=== PATIENT | male | born 1950 | race Caucasian/White ===

== ENCOUNTER 2019-03-11 20:10 | Inpatient (IN) | payer MEDICARE ==
[~2019-03-11] VITALS: Ht 175.3 cm; Wt 95.9 kg
[2019-03-11] MEDS ORDERED: XANAX1 MG PO (20:16)
[2019-03-11] MEDS ORDERED: SEROQUEL25 MG PO (20:16)
[2019-03-11] MEDS ORDERED: BP MED (20:16)
[2019-03-11] MEDS ORDERED: DONEPEZIL HCL5 MG PO (20:17)
[2019-03-11] MEDS ORDERED: [UNRECOGNIZED DRUG - OTHER] (20:17)
[2019-03-11 21:03] LABS: BASOPHILS 0.3 % (0-2); EOSINOPHILS 2.6 % (0-7); HEMATOCRIT 36.4 % (42.0-54.0); HEMOGLOBIN 12.6 g/dL (13.5-17.5); IMMATURE GRANULOCYTES 0.2 % (0-5); LYMPHOCYTES 9.5 % (15-50); MCH 31.3 pg (26.0-34.0); MCHC 34.6 g/dL (31.0-37.0); MCV 90.5 fL (80.0-100.0); MONOCYTES 7.6 % (2-11); NEUTROPHILS 79.8 % (40-80); PLATELET COUNT 103 10x3/uL (130-400); RBC 4.02 10x6/uL (4.20-6.10); RDW 13.3 % (11.5-14.5); WBC 9.3 10x3/uL (4.8-10.8)
[2019-03-11 21:19] LABS: D-DIMER-QUANTITATIVE 1.21 ug/mLFEU (0.20-0.54)
[2019-03-11 21:22] LABS: ALBUMIN 3.6 g/dL (3.4-5.0); ALKALINE PHOSPHATASE 60 U/L (46-116); ALT (SGPT) 30 U/L (10-68); BILIRUBIN - TOTAL 0.38 mg/dL (0.2-1.3); CALC OSMOLALITY 278 mosm/kg (275-300); CALCIUM 8.6 mg/dL (8.5-10.1); CARBON DIOXIDE 20.8 mmol/L (21.0-32.0); CHLORIDE - SERUM 103 mmol/L (98-107); CREATININE - SERUM 1.6 mg/dL (0.6-1.3); GLUCOSE 115 mg/dL (74-106); POTASSIUM - SERUM 3.8 mmol/L (3.5-5.1); PROTEIN - SERUM 7.2 g/dL (6.4-8.2); SODIUM 138 mmol/L (136-145); UREA NITROGEN 17 mg/dL (7-18); eGFR NON AFRICAN AMERICAN 46 mL/min (90-120)
[2019-03-11 21:34] LABS: CKMB 3.1 U/L (0.0-3.6); MAGNESIUM - SERUM 1.9 mg/dL (1.8-2.4)
[2019-03-11 21:35] LABS: CREATINE KINASE 1109 UL (21-232); TROPONIN-I < 0.017 ng/mL (0.000-0.060)
[2019-03-11 23:21] LABS: INR 1.04 (0.85-1.17); PROTIME 13.1 SECONDS (11.6-15.0)
[2019-03-11 23:22] LABS: APTT 27.4 SECONDS (22.8-39.4)
[2019-03-11 23:56] VITALS: BP 115/70
[2019-03-12] MEDS ORDERED: NORVASC5 MG PO (00:32)
--- NOTE | 2019-03-12 01:10 | NUR ---
PT HAS ARRIVED TO FLOOR BY BED, VITALS STABLE. MEDICATIONS REVIEWED. PT STATES HAVING RIGHT SIDED PAIN UNDER RIBS. CURRENTLY SITTING UP IN BED WITH EYES OPEN, RR EVEN AND UNLABORED. NORMAL SALINE INFUSING ORDERED. PT HAS BEEN INFORMED HE IS NPO TONIGHT, PT DENIES FURTHER NEEDS AT THIS TIME. TELEMETRY ESTABLISHED. CALL LIGHT IN REACH. WILL CTM.
[2019-03-12 03:59] VITALS: BP 175/94; BMI 30.3
[2019-03-12 04:00] VITALS: BP 175/94
--- NOTE | 2019-03-12 04:10 | NUR ---
ADMISSION ASSESSMENT COMPLETED.
[2019-03-12 07:20] VITALS: BP 102/68
--- NOTE | 2019-03-12 10:29 | NUR ---
ASSISTED PT TO BR AND BACK TO BED, FAMILY AT BEDSIDE, DENIES ANY NEEDS AT THIS TIME. WILL CONT TO FOLLOW POC
[2019-03-12 10:41] VITALS: BP 102/59
[2019-03-12 10:46] VITALS: BP 102/67
--- NOTE | 2019-03-12 11:53 | NUR ---
PT RESTING IN BED WITH FAMILY AT BEDSIDE, DENIES ANY NEEDS AT THIS TIME, WILL CONT TO FOLLOW POC
[2019-03-12 13:32] VITALS: BMI 30.2
[2019-03-12 18:06] LABS: % SATURATION 11 % (15-55); ALBUMIN 3.2 g/dL (3.4-5.0); ANION GAP 12.5 mmol/L (8-16); BILIRUBIN - TOTAL 0.32 mg/dL (0.2-1.3); CALCIUM 8.3 mg/dL (8.5-10.1); CARBON DIOXIDE 24.6 mmol/L (21.0-32.0); IRON 26 ug/dl (35-150); POTASSIUM - SERUM 4.1 mmol/L (3.5-5.1); PROTEIN - SERUM 6.6 g/dL (6.4-8.2); TOTAL IRON BIND CAPACITY 226 ug/dl (260-445); UNSAT IRON BIND CAPACITY 200 ug/dl (150-375)
[2019-03-12 18:10] LABS: CREATININE - SERUM 1.1 mg/dL (0.6-1.3)
[2019-03-12 18:13] LABS: BASOPHILS 0.3 % (0-2); EOSINOPHILS 2.4 % (0-7); HEMATOCRIT 33.7 % (42.0-54.0); HEMOGLOBIN 11.4 g/dL (13.5-17.5); IMMATURE GRANULOCYTES 0.3 % (0-5); LYMPHOCYTES 8.5 % (15-50); MCH 31.3 pg (26.0-34.0); MCHC 33.8 g/dL (31.0-37.0); MEAN PLATELET VOLUME 9.6 fL (7.4-10.4); MONOCYTES 5.4 % (2-11); NEUTROPHILS 83.1 % (40-80); PLATELET COUNT 99 10x3/uL (130-400); RBC 3.64 10x6/uL (4.20-6.10); RDW 13.4 % (11.5-14.5); WBC 7.8 10x3/uL (4.8-10.8)
--- NOTE | 2019-03-12 18:23 | NUR ---
PT C/O OF ESPAÑA AND IS REQUESTING IBUPROFEN. PT STATES APAP DOES NOT HELP HIS ESPAÑA. ASKED PT TO LAY FLAT AND NURSE WILL CALL . ORDERED A ONE TIME DOSE OF IBUPROFEN 400MG. NURSE OBTAINED IBUPROFEN AND TOOK TO PT ROOM. PT HAD BEEN LAYING FLAT FOR ABOUT 10MINS BY THIS TIME. PT STATES HIS HEADACHE WENT AWAY. ADVISED PT HE IS MOST LIKELY HAVING A SPINAL ESPAÑA AND THAT LAYING FLAT AND DRINKING CAFFIENE WILL HELP THE ESPAÑA. PT VERBALIZES UNDERSTANDING. PT DID NOT WANT TO TAKE THE IBUPROFEN. NOTIFIED .
[2019-03-12 18:24] LABS: MCV 92.6 fL (80.0-100.0)
[2019-03-12 18:25] LABS: PLATELET ESTIMATE DECREASED
--- NOTE | 2019-03-12 19:38 | NUR ---
PT IN BED. DENIES NEEDS AT THIS TIME.
[2019-03-12 21:24] VITALS: BP 138/79
[2019-03-12 23:09] LABS: APPEARANCE CLEAR (CLEAR); BILIRUBIN NEGATIVE (NEGATIVE); COLOR YELLOW (YELLOW); GLUCOSE NEGATIVE (NEGATIVE); KETONE NEGATIVE (NEGATIVE); NITRITE NEGATIVE (NEGATIVE); PROTEIN NEGATIVE (NEGATIVE); UROBILINOGEN NORMAL (NORMAL)
[2019-03-13] VITALS: BP 111/53
[2019-03-13 04:00] VITALS: BP 135/80
[2019-03-13 05:58] LABS: BASOPHILS 0.3 % (0-2); EOSINOPHILS 3.2 % (0-7); HEMOGLOBIN 10.6 g/dL (13.5-17.5); IMMATURE GRANULOCYTES 0.3 % (0-5); LYMPHOCYTES 10.3 % (15-50); MCH 30.7 pg (26.0-34.0); MCHC 33.1 g/dL (31.0-37.0); MCV 92.8 fL (80.0-100.0); MEAN PLATELET VOLUME 9.1 fL (7.4-10.4); MONOCYTES 9.4 % (2-11); NEUTROPHILS 76.5 % (40-80); PLATELET COUNT 84 10x3/uL (130-400); RBC 3.45 10x6/uL (4.20-6.10); RDW 13.5 % (11.5-14.5); WBC 7.3 10x3/uL (4.8-10.8)
[2019-03-13 06:13] LABS: CALC OSMOLALITY 281 mosm/kg (275-300); CALCIUM 8.1 mg/dL (8.5-10.1); CARBON DIOXIDE 24.7 mmol/L (21.0-32.0); CHLORIDE - SERUM 108 mmol/L (98-107); POTASSIUM - SERUM 3.9 mmol/L (3.5-5.1); SODIUM 140 mmol/L (136-145); UREA NITROGEN 18 mg/dL (7-18); eGFR NON AFRICAN AMERICAN 79 mL/min (90-120)
[2019-03-13 06:15] LABS: GLUCOSE 113 mg/dL (74-106)
[2019-03-13 07:56] VITALS: BP 161/87
--- NOTE | 2019-03-13 08:00 | NUR ---
PT RESTING COMFORTABLE IN BED, SHIFT ASSESSMENT PERFORMED. DENIES ANY NEEDS AT THIS TIME. WILL CONT TO FOLLOW POC
--- NOTE | 2019-03-13 09:13 | MORECARE ---
CASE MANAGEMENT DISCHARGE SUMMARY PATIENT: KATHERINE COLES UNIT: [id number] ADM DATE: 03/11/19 AGE: 68 : 51 SEX: M ROOM/BED: D.2111 AUTHOR: VENUDOC PHYSICIAN: REFERRING PHYSICIAN: LUCHO SHELTON MD DATE OF SERVICE: 03/13/19 Discharge Plan Patient Name: KATHERINE COLES Facility: [facility]:[place] : 1950 Planned Disposition: Home Anticipated Discharge Date: 03/14/19 Discharge Date: Expected LOS: 3 Initial Reviewer: [id number] Initial Review Date: 03/13/2019 Generated: 03/13/19 10:13 am Comments DCP- Discharge Planning Updated by [id number]: Hero Olmstead on 03/12/19 3:[address] Patient Name: KATHERINE COLES Admission Status: ER Accout number: [id number] Admission Date: 03-11-2019 : 1950 Admission Diagnosis: Attending: LUCHO SHELTON Current LOS: 1 Anticipated DC Date: Planned Disposition: Primary Insurance: MEDICARE A & B Discharge Planning Comments: CM ATTEMPTED TO MEET WITH PT FOR INITIAL ASSESSMENT OF DISCHARGE NEEDS. PT WAS NOT IN ROOM AT APPROXIMATELY 1600 HOURS. CM TO ATTEMPT ASSESSMENT OF PT AT A LATER TIME. Electrical Machine Builder: Hero Olmstead DCPIA - Discharge Planning Initial Assessment Updated by [id number]: Hero Olmstead on 03/13/19 9:12 am * Is the patient Alert and Oriented? Yes * How many steps to enter\exit or inside your home? * PCP DR. MORALEZ * Pharmacy [facility] ON [facility] * Preadmission Environment Home Alone * ADLs Independent * Equipment None * Other Equipment NO MEDICAL EQUIPMENT PROVIDER PREFERENCE * List name and contact numbers for known caregivers / representatives who currently or will assist patient after discharge: KAROL PACHECO DTR, * Verbal permission to speak to the caregivers and representatives has been obtained from the patient. Yes * Community resources currently utilized None * Please name any agencies selected above. NONE * Additional services required to return to the preadmission environment? No * Can the patient safely return to the preadmission environment? Yes * Has this patient been hospitalized within the prior 30 days at any hospital? No Coverage Notice Reviewer: [id number] - Hero Bellmore Notice Issued Date-Time: 03/13/2019 9:00 Notice Type: IM Discharge Notice Notice Delivered To: Patient Relationship to Patient: Unclaimed Property Manager Name: Delivery Method: HAND - Hand Delivered Miguelina Days: Prior Verbal Notification: Recipient Understood Notice: Yes Recipient Signature: Yes Med Rec Note Co-signed by Attending: Coverage Notice Comment: Patient Name: KATHERINE COLES Page 27556 at 0913 All edits/amendments must be made on the electronic document DICTATION DATE: 03/13/19912 CLEANER WINDOW: ANGIE 03/13/19912 RPT#: [id number] DC DATE: STATUS: ADM IN [facility] [address] [place] [address] END OF REPORT
--- NOTE | 2019-03-13 09:20 | MORECARE ---
CASE MANAGEMENT DISCHARGE SUMMARY PATIENT: KATHERINE COLES UNIT: [id number] ADM DATE: 03/11/19 AGE: 68 : 51 SEX: M ROOM/BED: D.2111 AUTHOR: VENU,DOC PHYSICIAN: REFERRING PHYSICIAN: LUCHO SHELTON MD DATE OF SERVICE: 03/13/19 Discharge Plan Patient Name: KATHERINE COLES Facility: [facility]:[place] : 1950 Planned Disposition: Home Anticipated Discharge Date: 03/14/19 Discharge Date: Expected LOS: 3 Initial Reviewer: [email or web address] Initial Review Date: 03/13/2019 Generated: 03/13/19 10:20 am Comments DCP- Discharge Planning Updated by [email or web address]: Hero Olmstead on 03/13/19 8:[address] Patient Name: KATHERINE COLES Admission Status: ER Accout number: [id number] Admission Date: 03-11-2019 : 1950 Admission Diagnosis: Attending: LUCHO SHELTON Current LOS: 2 Anticipated DC Date: 03-14-2019 Planned Disposition: Home Primary Insurance: MEDICARE A & B Discharge Planning Comments: CM MET WITH PT AND FAMILY IN ROOM TO DISCUSS DISCHARGE PLANNING AND NEEDS. KATHERINE COLES provided verbal consent to discuss current and ongoing needs with/in the presence of: SON IN LAW. PT REPORTS LIVING AT HOME INDEPENDENTLY AND ALONE. 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 PT HAS NO MEDICAL EQUIPMENT AND NO OUTSIDE SERVICES ASSISTING IN THE HOME. CM DISCUSSED AVAILABILITY OF HOME HEALTH, REHAB SERVICES AND MEDICAL EQUIPMENT. PT DENIES DISCHARGE NEEDS, REPORTS HIS FAMILY WILL PICK HIM UP FOR DISCHARGE HOME. IMPORTANT MESSAGE FROM MEDICARE PROVIDED AND EXPLAINED. PT PLANS TO DISCHARGE HOME ALONE, NO ANTICIPATED DISCHARGE NEEDS, FAMILY TO TRANSPORT HOME AT DISCHARGE. CM TO FOLLOW AND ASSIST IF NEEDED. Counter Control Operator: Hero Olmstead DCP- Discharge Planning Updated by [id number]: Hero Olmstead on 03/12/19 3:[address] Patient Name: KATHERINE COLES Admission Status: ER Accout number: [id number] Admission Date: 03-11-2019 : 1950 Admission Diagnosis: Attending: LUCHO SHELTON Current LOS: 1 Anticipated DC Date: Planned Disposition: Primary Insurance: MEDICARE A & B Discharge Planning Comments: CM ATTEMPTED TO MEET WITH PT FOR INITIAL ASSESSMENT OF DISCHARGE NEEDS. PT WAS NOT IN ROOM AT APPROXIMATELY 1600 HOURS. CM TO ATTEMPT ASSESSMENT OF PT AT A LATER TIME. Counter Control Operator: Hero Olmstead DCPIA - Discharge Planning Initial Assessment Updated by [id number]: Hero Olmstead on 03/13/19 9:12 am * Is the patient Alert and Oriented? Yes * How many steps to enter\exit or inside your home? * PCP DR. MORALEZ * Pharmacy [facility] ON [facility] * Preadmission Environment Home Alone * ADLs Independent * Equipment None * Other Equipment NO MEDICAL EQUIPMENT PROVIDER PREFERENCE * List name and contact numbers for known caregivers / representatives who currently or will assist patient after discharge: KAROL PACHECO DTR, * Verbal permission to speak to the caregivers and representatives has been obtained from the patient. Yes * Community resources currently utilized None * Please name any agencies selected above. NONE * Additional services required to return to the preadmission environment? No * Can the patient safely return to the preadmission environment? Yes * Has this patient been hospitalized within the prior 30 days at any hospital? No Coverage Notice Reviewer: [id number] - Hero Olmstead Notice Issued Date-Time: 03/13/2019 9:00 Notice Type: IM Discharge Notice Notice Delivered To: Patient Relationship to Patient: Chip Silo Tender Name: Delivery Method: HAND - Hand Delivered Miguelina Days: Prior Verbal Notification: Recipient Understood Notice: Yes Recipient Signature: Yes Med Rec Note Co-signed by Attending: Coverage Notice Comment: Last DP export: 03/13/19 8:13 am Patient Name: KATHERINE COLES Page [phone] at 0920 All edits/amendments must be made on the electronic document DICTATION DATE: 03/13/19919 LAUNDRY HOUSEKEEPER: ANGIE 03/13/19919 RPT#: [id number] DC DATE: STATUS: ADM IN [facility] [address] [place] [address] END OF REPORT
--- NOTE | 2019-03-13 11:06 | NUR ---
STUDENT NURSE NOTIFIED NURSE THAT PT EPIDURAL DRESSING WAS OFF AND THE EPIDURAL WAS EXPOSED. UPON ASSESSMENT, DRESSING ROLLED UP PT BACK AND HIS EPIDURAL CATHETER WAS EXPOSED. PAGED ANESTHESIA. ANESTHESIA CAME TO PT ROOM AND REDRESSED EPIDURAL. WHILE ANESTHESIA WAS IN ROOM, THEY CHANGED OUT FENTANYL. FENTANYL REMOVED WAS 15ML AND NEW BAG BALANCE IS 257.4
[2019-03-13 12:53] VITALS: BP 160/79
--- NOTE | 2019-03-13 13:55 | NUR ---
PT C/O OF PAIN. SPOKE TO AND NEW ORDER RECIEVED TO INCREASE HMP FROM 1MG Q4H PRN TO 2MG Q4H PRN AND GO AHEAD AND GIVE 1MG NOW.
[2019-03-13 15:08] VITALS: BP 144/82
--- NOTE | 2019-03-13 15:13 | NUR ---
PIV TO PT RIGHT AC INFILTRATED. REMOVED PIV WITH CATHETER TIP INTACT. 20G PIV INSERTED TO PT RIGHT HAND X1 ATTEMPT. PT TOLERATED WELL.
--- NOTE | 2019-03-13 16:25 | NUR ---
PT GIVEN HMP 2MG AT 1515. AT 1620 PT C/O PAIN. NEW ORDER RECIEVED FROM TO INCREASE HMP TO 3MG Q4HR PRN.
--- NOTE | 2019-03-13 19:46 | NUR ---
ORDER CLARIFICATION: PTS EMAR STILL SHOWS EPIDURAL FOR PAIN CONTROL ALONG WITH DILAUDID 3 MG Q4 HOURS PRN, HOW EVER EPIDURAL IS TURNED OFF. SPOKE WITH DR SHELTON, ORDERS TO GIVE THE DILAUDID 3 MG EVERY 4 HOURS NEEDED AND IF THAT DOESNT CONTROL THE PAIN THEN TO CALL BACK AND THE PAIN MEDS MAY BE INCREASED.
[2019-03-13 20:00] VITALS: BP 148/91
[2019-03-14 04:00] VITALS: BP 145/75
--- NOTE | 2019-03-14 06:37 | NUR ---
PT IN BED IN LOW FOWLERS POSITION. ALERT AND ORIENTED X4. RESPIRATIONS EVEN AND UNLABORED. VITAL SIGNS STABLE AND AFEBRILE. NO VISUAL CUES OF DISTRESS NOTED. DENIES ANY OTHER NEEDS AT THIS TIME. BED LOW, SIDE RAILS UP X2. CALL LIGHT IN REACH. WILL CONTINUE TO MONITOR.
[2019-03-14 06:39] LABS: BASOPHILS 0.1 % (0-2); EOSINOPHILS 0.8 % (0-7); HEMATOCRIT 32.6 % (42.0-54.0); IMMATURE GRANULOCYTES 0.3 % (0-5); LYMPHOCYTES 8.1 % (15-50); MCH 30.9 pg (26.0-34.0); MCHC 33.7 g/dL (31.0-37.0); MCV 91.6 fL (80.0-100.0); MONOCYTES 7.5 % (2-11); NEUTROPHILS 83.2 % (40-80); PLATELET COUNT 97 10x3/uL (130-400); RBC 3.56 10x6/uL (4.20-6.10); RDW 13.6 % (11.5-14.5)
[2019-03-14 06:43] LABS: WBC 9.8 10x3/uL (4.8-10.8)
[2019-03-14 06:52] LABS: CALC OSMOLALITY 276 mosm/kg (275-300); CALCIUM 8.5 mg/dL (8.5-10.1); CARBON DIOXIDE 27.1 mmol/L (21.0-32.0); CHLORIDE - SERUM 104 mmol/L (98-107); CREATININE - SERUM 0.9 mg/dL (0.6-1.3); GLUCOSE 130 mg/dL (74-106); LDH 246 U/L (85-227); POTASSIUM - SERUM 4.2 mmol/L (3.5-5.1); SODIUM 137 mmol/L (136-145); UREA NITROGEN 14 mg/dL (7-18); eGFR NON AFRICAN AMERICAN 89 mL/min (90-120)
[2019-03-14 07:03] LABS: INR 1.18 (0.85-1.17); PROTIME 14.5 SECONDS (11.6-15.0)
--- NOTE | 2019-03-14 07:30 | NUR ---
RECEIVED PT IN BED EYES CLOSED RESP UNLABORED SKIN W/D COLOR WNL NAD NOTED WILL CONTINUE TO MONITOR
[2019-03-14 09:23] VITALS: BP 119/72
[2019-03-14 13:35] VITALS: BP 141/90
--- NOTE | 2019-03-14 14:37 | NUR ---
Nutrition follow-up: Diet: Low sodium PO intake 100% of meals Labs reviewed Wt: 213# PO intake good at this time RDN following.
[2019-03-14 18:00] VITALS: BP 146/88
[2019-03-14 20:00] VITALS: BP 152/91
--- NOTE | 2019-03-14 20:00 | NUR ---
PATIENT SITTING UP IN BED. NO COMPLAINTS AT THIS TIME. NO DISTRESS NOTED.
--- NOTE | 2019-03-15 00:30 | NUR ---
PATIENT LAYING IN BED. EYES CLOSED, CHEST RISING AND FALLING. NO DISTRESS NOTED.
[2019-03-15 04:00] VITALS: BP 132/77
--- NOTE | 2019-03-15 04:13 | NUR ---
I have reviewed this patient and I concur with the Shift Assessment completed by the Licensed Practical Nurse today this shift.
[2019-03-15 05:05] LABS: BASOPHILS 0.1 % (0-2); EOSINOPHILS 0.1 % (0-7); HEMATOCRIT 31.5 % (42.0-54.0); HEMOGLOBIN 10.7 g/dL (13.5-17.5); IMMATURE GRANULOCYTES 0.3 % (0-5); LYMPHOCYTES 7.6 % (15-50); MCV 91.3 fL (80.0-100.0); MONOCYTES 2.1 % (2-11); NEUTROPHILS 89.8 % (40-80); PLATELET COUNT 102 10x3/uL (130-400); RBC 3.45 10x6/uL (4.20-6.10); RDW 13.4 % (11.5-14.5)
[2019-03-15 05:18] LABS: CALC OSMOLALITY 273 mosm/kg (275-300); CALCIUM 8.9 mg/dL (8.5-10.1); CARBON DIOXIDE 27.3 mmol/L (21.0-32.0); CHLORIDE - SERUM 102 mmol/L (98-107); GLUCOSE 178 mg/dL (74-106); POTASSIUM - SERUM 5.2 mmol/L (3.5-5.1); SODIUM 135 mmol/L (136-145); UREA NITROGEN 13 mg/dL (7-18); eGFR NON AFRICAN AMERICAN 79 mL/min (90-120)
[2019-03-15 06:13] LABS: FOLATE (FOLIC ACID) - SERUM >20.0 ng/mL (>3.0)
--- NOTE | 2019-03-15 07:44 | NUR ---
PT AWAKE AND ORIENTED AT THIS TIME. RECIEVING BREATHING TREATMENT. NO COMPLAINTS OR CONCERNS VOICED AT THIS TIME. CL IN REACH, SRX2.
--- NOTE | 2019-03-15 09:09 | NUR ---
PT REQUESTED A SHOWER, AID TO ASSIST.
[2019-03-15 09:18] VITALS: BP 154/90
--- NOTE | 2019-03-15 10:56 | NUR ---
PT STATES THAT HE BUMPED HIS ELBOW ON THE EDGE OF THE SINK. CAUSED A SKIN TEAR, SIZE OF A DIME. PT RESFUSES A BANDAID. CL IN REACH. SRX2.
[2019-03-15 13:12] VITALS: BP 163/87
[2019-03-15 17:11] VITALS: BP 151/95
--- NOTE | 2019-03-15 18:30 | NUR ---
I/V RESITED TO RIGHT AC
--- NOTE | 2019-03-15 18:39 | NUR ---
PT IV RESITED. NO OTHER COMPLAINTS OR CONCERNS AT THIS TIME. CL IN REACH, SRX2.
--- NOTE | 2019-03-15 19:00 | NUR ---
PATIENT SITTING UP ON SIDE OF BED WITH FAMILY IN ROOM. PATIENT HAS NO COMPLAINTS AT THIS TIME. NO DISTRESS NOTED.
[2019-03-15 20:22] VITALS: BP 148/85
[2019-03-16] VITALS (7 sets, daily range): BP systolic 125–170; BP diastolic 73–100
--- NOTE | 2019-03-16 02:56 | NUR ---
I have reviewed this patient and I concur with the Shift Assessment completed by the Licensed Practical Nurse today this shift.
--- NOTE | 2019-03-16 04:05 | NUR ---
PATIENT LAYING IN BED. STATES HE JUST WENT TO THE BATHROOM. HAS NOT HAD A BOWEL MOVEMENT YET. PATIENT STATES THE LAXATIVES JUST GAVE HIM "GAS" SO FAR. PATIENT HAS NO COMPLAINTS AT THIS TIME. NO DISTRESS NOTED.
[2019-03-16 05:00] LABS: BASOPHILS 0.1 % (0-2); EOSINOPHILS 0 % (0-7); HEMATOCRIT 29.6 % (42.0-54.0); HEMOGLOBIN 9.9 g/dL (13.5-17.5); IMMATURE GRANULOCYTES 0.3 % (0-5); LYMPHOCYTES 9.1 % (15-50); MCH 30.7 pg (26.0-34.0); MCHC 33.4 g/dL (31.0-37.0); MCV 91.6 fL (80.0-100.0); MEAN PLATELET VOLUME 8.7 fL (7.4-10.4); MONOCYTES 5.2 % (2-11); NEUTROPHILS 85.3 % (40-80); RBC 3.23 10x6/uL (4.20-6.10); RDW 13.6 % (11.5-14.5); WBC 7.3 10x3/uL (4.8-10.8)
[2019-03-16 05:03] LABS: PLATELET COUNT 127 10x3/uL (130-400)
[2019-03-16 05:21] LABS: CALC OSMOLALITY 283 mosm/kg (275-300); CALCIUM 8.6 mg/dL (8.5-10.1); CARBON DIOXIDE 30.8 mmol/L (21.0-32.0); CHLORIDE - SERUM 103 mmol/L (98-107); CREATININE - SERUM 0.9 mg/dL (0.6-1.3); GLUCOSE 174 mg/dL (74-106); POTASSIUM - SERUM 4.6 mmol/L (3.5-5.1); SODIUM 139 mmol/L (136-145); eGFR NON AFRICAN AMERICAN 89 mL/min (90-120)
[2019-03-16 05:22] LABS: UREA NITROGEN 19 mg/dL (7-18)
--- NOTE | 2019-03-16 07:37 | NUR ---
PT ASLEEP, BREATHS EVEN AND REGUALR. NO OBVIOUS SIGNS OF DISTRESS NOTED AT THIS TIME. DID NOT WAKE WHEN I ENTERED, DID NOT FURTHER DISTURB AT THIS TIME. CL INREACH, SRX2.
--- NOTE | 2019-03-16 13:30 | NUR ---
I have reviewed this patient and I concur with the Shift Assessment completed by the Licensed Practical Nurse today this shift.
--- NOTE | 2019-03-17 | NUR ---
PT COMPLAINS OF COUGH AND PAIN. PRN COUGH MEDICATION REQUESTED AND GIVEN. WILL CONTINUE TO MONITOR.
--- NOTE | 2019-03-17 00:48 | NUR ---
PT STATES THE COUGH HAS GOTTEN BETTER THAT ITS NOT FREQUENT. PT STATES THE PAIN IS FROM THE COUGH. WILL CONTINUE TO MONITOR.
--- NOTE | 2019-03-17 01:44 | NUR ---
PT AWAKE BUT RESTING WITH OCCASIONAL COUGHING. PT DENIES ANY PAIN OR NEEDS AT THIS TIME. BED LOW, CALL LIGHT WITHIN REACH, WILL CONTINUE TO MONITOR.
--- NOTE | 2019-03-17 02:38 | NUR ---
PT STATES THAT PRN COUGH MEDICATION HAS MADE COUGH WORSE. PT REQUESTED PRN PAIN MEDICATION. MEDICATION GIVEN. WILL CONTINUE TO MONITOR AND ACCESS.
--- NOTE | 2019-03-17 03:11 | NUR ---
I have reviewed this patient and I concur with the Shift Assessment completed by the Licensed Practical Nurse today this shift.
--- NOTE | 2019-03-17 03:18 | NUR ---
PT RESTING WITH EYES CLOSED RR EVEN AND UNLABORED. BED LOW CALL LIGHT WITHIN REACH. WILL CONTINUE TO MONITOR.
[2019-03-17 04:54] LABS: BASOPHILS 0.4 % (0-2); EOSINOPHILS 0.6 % (0-7); HEMATOCRIT 30.5 % (42.0-54.0); HEMOGLOBIN 10.1 g/dL (13.5-17.5); IMMATURE GRANULOCYTES 0.6 % (0-5); LYMPHOCYTES 20.4 % (15-50); MCH 30.8 pg (26.0-34.0); MCHC 33.1 g/dL (31.0-37.0); MEAN PLATELET VOLUME 8.3 fL (7.4-10.4); MONOCYTES 11.4 % (2-11); NEUTROPHILS 66.6 % (40-80); PLATELET COUNT 140 10x3/uL (130-400); RBC 3.28 10x6/uL (4.20-6.10); RDW 13.9 % (11.5-14.5); WBC 8.1 10x3/uL (4.8-10.8)
[2019-03-17 05:05] LABS: CALCIUM 8.1 mg/dL (8.5-10.1); CHLORIDE - SERUM 104 mmol/L (98-107); CREATININE - SERUM 0.9 mg/dL (0.6-1.3); SODIUM 140 mmol/L (136-145); UREA NITROGEN 15 mg/dL (7-18); eGFR NON AFRICAN AMERICAN 89 mL/min (90-120)
[2019-03-17 05:12] LABS: CALC OSMOLALITY 280 mosm/kg (275-300); GLUCOSE 121 mg/dL (74-106); POTASSIUM - SERUM 3.6 mmol/L (3.5-5.1)
--- NOTE | 2019-03-17 05:55 | NUR ---
PT CMPLAINS OF PAIN 7/10 PAIN. PRN PAIN MED GIVEN. PT STATES TO TELL THE ONCOMING NURSE TO CALL THE DOCTOR AND GET HIM BACK ON THE IV PAIN MEDICATION. PERCACET IS NOT HELPING. BED LOW CALL LIGHT WITHIN REACH. WILL CONTINUE TO MONBITOR.
--- NOTE | 2019-03-17 07:24 | NUR ---
PT ASLEEP, WOKE EASILY I ENTERED THE ROOM. BEFORE SO MUCH A GREATING, PT STATED "YOU GOT MY MEDS YET?". WHEN I ASKED PT WHAT HE WAS REFERING TO HE STATED THAT HE WANTED HIS DILAUDID BACK TODAY, THAT IT WAS THE ONLY THING THAT WORKS. PT IS NOW REFUSING ANY COUGH SYURP, STATES THAT IT MAKES HIS COUGHING IMMEDIATELY WORSE, WITHIN 15 MINUTES. HE STATES IT'S HAPPEND FOUR TIMES, EVEN WITH THE NEW COUGH SYRUP PRESCRIBED YESTERDAY. PT STATES THAT OF RIGHT NOW HE IS IN NO PAIN BUT HE WILL BE SOON SO HE WANTS HIS MEDS. CL IN REACH, SRX2.
[2019-03-17 07:59] VITALS: BP 145/94
--- NOTE | 2019-03-17 11:17 | NUR ---
184/102 BP. CALLED DAWSON SHE SAID SHE WANTS TO WAIT AND SEE IF THE PAIN MEDICATION BRINGS IT DOWN.
--- NOTE | 2019-03-17 11:56 | NUR ---
PT LYING IN BED, SITTING TALKING TO HIS DAUGHTER AND RADHA GOLDBERG. PT IS IN A BETTER MOOD SINCE RECIEVING HIS DILAUDID. CL IN REACH, SRX2.
[2019-03-17 11:57] VITALS: BP 189/106
[2019-03-17 16:27] VITALS: BP 136/88
--- NOTE | 2019-03-17 18:14 | NUR ---
I have reviewed this patient and I concur with the Shift Assessment completed by the Licensed Practical Nurse today this shift.
--- NOTE | 2019-03-17 19:25 | NUR ---
GETTING UP TO RESTROOM AT THIS TIME BED IS LOW AND LOCKED I INSTRUCTED PT ON HOW TO OBTAIN A STOOL SAMPLE AT THIS TIME AND SPOKE AT LENGTH, PT EXPRESSED NEED FOR NAUSEA MED AND ZOFRAN WILL BE GIVEN. SKIN WARM AND DRY AND LCTA LEFT ROOM WITH CALL LIGHT IN PLACE PT IS REQUESTING THAT I BRING PRN DILAUDID "ON TIME" PT CAN HAVE AT 8 PM..DENIES PAIN CURRENTLYU BUT STATES HE DOES NOT WANT TO HURT.
[2019-03-17 19:45] VITALS: BP 159/82
[2019-03-17 23:44] VITALS: BP 136/82
--- NOTE | 2019-03-18 03:01 | NUR ---
I have reviewed this patient and I concur with the Shift Assessment completed by the Licensed Practical Nurse today this shift.
[2019-03-18 03:42] VITALS: BP 134/72
[2019-03-18 05:55] LABS: BASOPHILS 0.3 % (0-2); EOSINOPHILS 1.2 % (0-7); HEMOGLOBIN 10.8 g/dL (13.5-17.5); IMMATURE GRANULOCYTES 0.5 % (0-5); LYMPHOCYTES 19.1 % (15-50); MCHC 33.8 g/dL (31.0-37.0); MEAN PLATELET VOLUME 8.4 fL (7.4-10.4); NEUTROPHILS 69.9 % (40-80); PLATELET COUNT 143 10x3/uL (130-400); RBC 3.48 10x6/uL (4.20-6.10); RDW 13.7 % (11.5-14.5); WBC 7.6 10x3/uL (4.8-10.8)
[2019-03-18 06:19] LABS: CALC OSMOLALITY 277 mosm/kg (275-300); CALCIUM 8.3 mg/dL (8.5-10.1); CARBON DIOXIDE 32.7 mmol/L (21.0-32.0); CHLORIDE - SERUM 102 mmol/L (98-107); CREATININE - SERUM 0.9 mg/dL (0.6-1.3); GLUCOSE 94 mg/dL (74-106); POTASSIUM - SERUM 3.9 mmol/L (3.5-5.1); SODIUM 138 mmol/L (136-145); UREA NITROGEN 18 mg/dL (7-18); eGFR NON AFRICAN AMERICAN 89 mL/min (90-120)
--- NOTE | 2019-03-18 07:10 | NUR ---
PT SLEEPING WHEN I ENTERED THE ROOM, BUT HE HAD JUST BEEN ON THE CALL LIGHT. ASKED THE AID FOR PAIN MEDICATION, STATING HE'S NOT IN [place] BUT HE DOESN'T WANT TO HURT LATER. WHEN I ENTERED A FEW MINUTES LATER PT WAS/IS RESTING PEACEFULLY WITH A SMALL SNORE. CL IN REACH, SRX2.
[2019-03-18 07:59] VITALS: BP 141/77
--- NOTE | 2019-03-18 09:22 | NUR ---
PT REFUSED TELEMTRY. SAYING ITS TOO INCONVIENENT.
[2019-03-18 09:49] VITALS: Ht 175.3 cm; Wt 95.9 kg
[2019-03-18 12:04] VITALS: BP 146/86
--- NOTE | 2019-03-18 19:20 | NUR ---
PT IS ALERT AND ORIENTED X4 SR X2 AND BED IS LOCKED CALL LIGHT IN PT HAND ...DENIES ALL PAIN EXCEPT COUGH AND ACKNOLEDGES NEED TO STOP TAKINF DILAUDID. LCTA SKIN WARM AND DRY BOWEL SOUNDS X4 BUT NO BM TO COLLECT DENIES ABD PAIN
[2019-03-18 20:00] VITALS: BP 142/85
[2019-03-19] VITALS: BP 168/67
[2019-03-19 00:02] VITALS: BP 154/91
[2019-03-19 04:00] VITALS: BP 171/98
[2019-03-19 05:05] LABS: BASOPHILS 0.3 % (0-2); EOSINOPHILS 3.8 % (0-7); HEMATOCRIT 31.2 % (42.0-54.0); HEMOGLOBIN 10.3 g/dL (13.5-17.5); IMMATURE GRANULOCYTES 0.7 % (0-5); MCH 30.7 pg (26.0-34.0); MCV 93.1 fL (80.0-100.0); MEAN PLATELET VOLUME 8.3 fL (7.4-10.4); MONOCYTES 9.4 % (2-11); NEUTROPHILS 63.8 % (40-80); PLATELET COUNT 142 10x3/uL (130-400); RBC 3.35 10x6/uL (4.20-6.10); RDW 13.8 % (11.5-14.5); WBC 5.9 10x3/uL (4.8-10.8)
[2019-03-19 05:25] LABS: CALC OSMOLALITY 282 mosm/kg (275-300); CALCIUM 8.1 mg/dL (8.5-10.1); CHLORIDE - SERUM 104 mmol/L (98-107); CREATININE - SERUM 0.9 mg/dL (0.6-1.3); GLUCOSE 100 mg/dL (74-106); POTASSIUM - SERUM 3.6 mmol/L (3.5-5.1); SODIUM 141 mmol/L (136-145); UREA NITROGEN 18 mg/dL (7-18); eGFR NON AFRICAN AMERICAN 89 mL/min (90-120)
[2019-03-19 09:18] VITALS: BP 146/83
[2019-03-19] MEDS ORDERED: OMNICEF300 MG PO (10:45)
[2019-03-19] MEDS ORDERED: NORVASC5 MG PO (10:46)
[2019-03-19] MEDS ORDERED: FLUTICASONE PRO16 GM NASAL (10:47)
[2019-03-19] MEDS ORDERED: FLORAJEN3 CAPS460 MG PO (10:47)
[2019-03-19] MEDS ORDERED: MUCINEX DM ER1 EAC1 PO (10:47)
[2019-03-19] MEDS ORDERED: TESSALON PERLE100 MG PO (10:48)
[2019-03-19] MEDS ORDERED: NORCO-10 PO (10:48)
--- NOTE | 2019-03-19 11:46 | MORECARE ---
CASE MANAGEMENT DISCHARGE SUMMARY PATIENT: KATHERINE COLES UNIT: [id number] ADM DATE: 03/11/19 AGE: 68 : 51 SEX: M ROOM/BED: D.2111 AUTHOR: VENUDOC PHYSICIAN: REFERRING PHYSICIAN: LUCHO SHELTON MD DATE OF SERVICE: 03/19/19 Discharge Plan Patient Name: KATHERINE COLES Facility: [facility]:[place] : 1950 Planned Disposition: Home Anticipated Discharge Date: 03/19/19 Discharge Date: Expected LOS: 8 Initial Reviewer: [email or web address] Initial Review Date: 03/13/2019 Generated: 03/19/19 12:45 pm Comments DCP- Discharge Planning Updated by [id number]: Hero Olmstead on 03/19/19 10:[address] Patient Name: KATHERINE COLES Encounter No: [id number] : 1950 Primary Insurance: MEDICARE A & B Anticipated DC Date: 03-19-2019 Planned Disposition: Home DCP follow-up note: CM MET WITH PT IN ROOM TO DISCUSS DISCHARGE NEEDS AND PLANNING. CM DISCUSSED AVAILABILITY OF HOME HEALTH, REHAB SERVICES AND MEDICAL EQUIPMENT. PT DENIES DISCHARGE NEEDS. FAMILY TO TRANSPORT HOME AT DISCHARGE. IMPORTANT MESSAGE FROM MEDICARE PROVIDED AND EXPLAINED. PARTH Malave DCP- Discharge Planning Updated by [id number]: Hero Olmstead on 03/13/19 8:[address] Patient Name: KATHERINE COLES Admission Status: ER Accout number: [id number] Admission Date: 03-11-2019 : 1950 Admission Diagnosis: Attending: LUCHO SHELTON Current LOS: 2 Anticipated DC Date: 03-14-2019 Planned Disposition: Home Primary Insurance: MEDICARE A & B Discharge Planning Comments: CM MET WITH PT AND FAMILY IN ROOM TO DISCUSS DISCHARGE PLANNING AND NEEDS. KATHERINE COLES provided verbal consent to discuss current and ongoing needs with/in the presence of: SON IN LAW. PT REPORTS LIVING AT HOME INDEPENDENTLY AND ALONE. 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 PT HAS NO MEDICAL EQUIPMENT AND NO OUTSIDE SERVICES ASSISTING IN THE HOME. CM DISCUSSED AVAILABILITY OF HOME HEALTH, REHAB SERVICES AND MEDICAL EQUIPMENT. PT DENIES DISCHARGE NEEDS, REPORTS HIS FAMILY WILL PICK HIM UP FOR DISCHARGE HOME. IMPORTANT MESSAGE FROM MEDICARE PROVIDED AND EXPLAINED. PT PLANS TO DISCHARGE HOME ALONE, NO ANTICIPATED DISCHARGE NEEDS, FAMILY TO TRANSPORT HOME AT DISCHARGE. CM TO FOLLOW AND ASSIST IF NEEDED. Major Account Representative: Hero Olmstead DCP- Discharge Planning Updated by [id number]: Hero Olmstead on 03/12/19 3:[address] Patient Name: KATHERINE COLES Admission Status: ER Accout number: [id number] Admission Date: 03-11-2019 : 1950 Admission Diagnosis: Attending: LUCHO SHELTON Current LOS: 1 Anticipated DC Date: Planned Disposition: Primary Insurance: MEDICARE A & B Discharge Planning Comments: CM ATTEMPTED TO MEET WITH PT FOR INITIAL ASSESSMENT OF DISCHARGE NEEDS. PT WAS NOT IN ROOM AT APPROXIMATELY 1600 HOURS. CM TO ATTEMPT ASSESSMENT OF PT AT A LATER TIME. Major Account Representative: Hero Olmstead DCPIA - Discharge Planning Initial Assessment Updated by [id number]: Hero Olmstead on 03/13/19 9:12 am * Is the patient Alert and Oriented? Yes * How many steps to enter\exit or inside your home? * PCP DR. MORALEZ * Pharmacy [facility] ON [facility] * Preadmission Environment Home Alone * ADLs Independent * Equipment None * Other Equipment NO MEDICAL EQUIPMENT PROVIDER PREFERENCE * List name and contact numbers for known caregivers / representatives who currently or will assist patient after discharge: KARLO PACHECO DTR, * Verbal permission to speak to the caregivers and representatives has been obtained from the patient. Yes * Community resources currently utilized None * Please name any agencies selected above. NONE * Additional services required to return to the preadmission environment? No * Can the patient safely return to the preadmission environment? Yes * Has this patient been hospitalized within the prior 30 days at any hospital? No Coverage Notice Reviewer: [id number] Pedro Olmstead Notice Issued Date-Time: 03/13/2019 9:00 Notice Type: IM Discharge Notice Notice Delivered To: Patient Relationship to Patient: [employer] Logger Name: Delivery Method: HAND - Hand Delivered Miguelina Days: Prior Verbal Notification: Recipient Understood Notice: Yes Recipient Signature: Yes Med Rec Note Co-signed by Attending: Coverage Notice Comment: Reviewer: [id number] Olmstead Notice Issued Date-Time: 03/19/2019 11:30 Notice Type: IM Discharge Notice Notice Delivered To: Patient Relationship to Patient: [employer] Logger Name: Delivery Method: HAND - Hand Delivered Miguelina Days: Prior Verbal Notification: Recipient Understood Notice: Yes Recipient Signature: Yes Med Rec Note Co-signed by Attending: Coverage Notice Comment: Last DP export: 03/13/19 8:20 am Patient Name: KATHERINE COLES Page [phone] at 1146 All edits/amendments must be made on the electronic document DICTATION DATE: 03/19/19 1145 ETL LEAD: ANGIE 03/19/19 1145 RPT#: [id number] DC DATE: STATUS: ADM IN [facility] [address] [place] [address] END OF REPORT
[2019-03-19] MEDS ORDERED: SINGULAIR10 MG PO (11:49)
--- NOTE | 2019-03-19 12:46 | NUR ---
PT IS GOING TO BE DISCHARGED AND VERY EXCITED ABOUT THIS. D/C PTS L.AC PIV WITH CATHETER TIP FULLY INTACT. DISCHARGE TEACHING PROVIDED AND PAPERS SIGNED. PT COLLECTED HIS BELONGINGS. PT DENIES ANY QUESTIONS OR CONCERNS. HARD SCRIPT FOR NORCO 10MG GIVEN TO PT. WILL CALL FOR AN ESCORT AT THIS TIME.
== END 2019-03-19 13:03 | disposition home or self-care (01) | DRG 205 ==
LOC: D.ER 20:10 → D.M2 23:38
PROVIDERS: Family Medicine; Internal Medicine Pulmonary Disease; ADMIT Internal Medicine Nephrology; ATTEND Internal Medicine Nephrology
DX: J98.4 Other disorders of lung (principal); N18.6 End stage renal disease; J98.11 Atelectasis; I12.0 Hypertensive chronic kidney disease with stage 5 chronic kidney disease or end stage renal disease; N17.9 Acute kidney failure, unspecified; S29.011A Strain of muscle and tendon of front wall of thorax, initial encounter; X58.XXXA Exposure to other specified factors, initial encounter; R07.81 Pleurodynia; J30.9 Allergic rhinitis, unspecified; Z87.891 Personal history of nicotine dependence; F41.9 Anxiety disorder, unspecified; D64.9 Anemia, unspecified; D50.9 Iron deficiency anemia, unspecified; D69.6 Thrombocytopenia, unspecified; F10.10 Alcohol abuse, uncomplicated; R51 Headache

== ENCOUNTER → 2019-04-17 11:03 | Outpatient (CLI) | payer MEDICARE, OTHER ==
[~2019-04-17 11:03] MED LIST: BP MED; DONEPEZIL HCL5 MG PO; FLORAJEN3 CAPS460 MG PO; FLUTICASONE PRO16 GM NASAL; MUCINEX DM ER1 EAC1 PO; NORCO-10 PO; NORVASC5 MG PO; OMNICEF300 MG PO; SEROQUEL25 MG PO; SINGULAIR10 MG PO; TESSALON PERLE100 MG PO; XANAX1 MG PO; [UNRECOGNIZED DRUG - OTHER]
== END | disposition home or self-care (01) ==
LOC: D.RAD 11:03
PROVIDERS: ATTEND Internal Medicine Pulmonary Disease
DX: J90 Pleural effusion, not elsewhere classified (principal); K46.9 Unspecified abdominal hernia without obstruction or gangrene

== ENCOUNTER 2019-07-20 06:18 | Emergency (ER) | payer MEDICARE, OTHER ==
[~2019-07-20] VITALS: Ht 175.3 cm; Wt 81.8 kg
[2019-07-20 06:25] VITALS: Ht 175.3 cm; Wt 81.8 kg
[2019-07-20 06:49] LABS: BASOPHILS 1.4 % (0-2); EOSINOPHILS 17.6 % (0-7); HEMATOCRIT 41.1 % (42.0-54.0); HEMOGLOBIN 13.6 g/dL (13.5-17.5); IMMATURE GRANULOCYTES 0.2 % (0-5); LYMPHOCYTES 16.7 % (15-50); MCH 31.3 pg (26.0-34.0); MCHC 33.1 g/dL (31.0-37.0); MCV 94.7 fL (80.0-100.0); MEAN PLATELET VOLUME 8.8 fL (7.4-10.4); MONOCYTES 9.6 % (2-11); NEUTROPHILS 54.5 % (40-80); RBC 4.34 10x6/uL (4.20-6.10); RDW 13.9 % (11.5-14.5); WBC 6.5 10x3/uL (4.8-10.8)
[2019-07-20 07:05] LABS: PLATELET COUNT 108 10x3/uL (130-400)
[2019-07-20 07:07] LABS: ALBUMIN 3.5 g/dL (3.4-5.0); ALKALINE PHOSPHATASE 107 U/L (46-116); ALT (SGPT) 18 U/L (10-68); BILIRUBIN - TOTAL 0.26 mg/dL (0.2-1.3); CALC OSMOLALITY 290 mosm/kg (275-300); CALCIUM 9.1 mg/dL (8.5-10.1); CARBON DIOXIDE 29.6 mmol/L (21.0-32.0); CHLORIDE - SERUM 108 mmol/L (98-107); CREATININE - SERUM 1.2 mg/dL (0.6-1.3); GLUCOSE 108 mg/dL (74-106); POTASSIUM - SERUM 4.3 mmol/L (3.5-5.1); PROTEIN - SERUM 7.9 g/dL (6.4-8.2); SODIUM 145 mmol/L (136-145); UREA NITROGEN 16 mg/dL (7-18); eGFR NON AFRICAN AMERICAN 64 mL/min (90-120)
[2019-07-20 07:10] LABS: INR 1.11 (0.85-1.17); PROTIME 13.8 SECONDS (11.6-15.0)
[2019-07-20 07:11] LABS: APTT 30.3 SECONDS (22.8-39.4)
[2019-07-20 07:12] LABS: D-DIMER-QUANTITATIVE 1.27 ug/mLFEU (0.20-0.54)
[2019-07-20 07:18] LABS: CKMB 14.1 U/L (0.0-3.6); CREATINE KINASE 270 UL (21-232); PRO BNP 96 pg/mL (0-125); TROPONIN-I < 0.017 ng/mL (0.000-0.060)
[2019-07-20] MEDS ORDERED: OMNICEF300 MG PO (09:50)
[2019-07-20 09:59] VITALS: BP 119/96
== END 2019-07-20 10:00 | disposition home or self-care (01) ==
LOC: D.ER 06:18
PROVIDERS: Family Medicine
DX: J98.4 Other disorders of lung (principal); R05 Cough

== ENCOUNTER 2019-07-21 15:24 | Inpatient (IN) | payer MEDICARE, OTHER ==
[~2019-07-21] VITALS: Ht 175.3 cm; Wt 83.9 kg
--- NOTE | 2019-07-21 18:25 | NUR ---
ASSUMED CARE OF THIS PATIENT AT THIS TIME FROM RADHA DUQUE.
--- NOTE | 2019-07-21 18:43 | NUR ---
ASSISTED PT TO RESTROOM AND BACK TO BED.
--- NOTE | 2019-07-21 19:30 | NUR ---
RECEIVED PT FROM ER VIA BED. A/O WITH NO SIGNS OF ACUTE DISTRESS. IV TO THE RT AC WITH NO REDNESS OR SWELLING AT SITE. NC @2L AND SOB NOTED UPON EXERTION. RETRACTION NOTED TO THE RT SIDE OF CHEST DUE TO FRACTURED RIB FROM COUGHING. CALLED RATING CLERK MD FOR SLEEPING AND BP MEDICATION PER PT REQUEST. DENIES PAIN OR OTHER NEEES AT THIS TIME. CONTINUE WITH PLAN OF CARE.
--- NOTE | 2019-07-21 19:30 | NUR ---
RECEIVED PT FROM ER VIA [employer]. A/O WITH SOME SOB NOTED UPON EXERTION. IV TO THE RT AC WITH NO REDNESS OR SWELLING AND NC @2L. RETRACTIONS NOTED TO THE RT SIDE OF THE CHEST DUE TO FRACTURE FROM COUGHING. CALLED MD FOR SLEEPING AND BP MEDICATION PER PT REQUEST. DENIES PAIN OR OTHER NEEDS AT THIS TIME. WILL CONTINUE TO MONITOR AND PLAN OF CARE.
[2019-07-21 22:58] VITALS: BP 152/90; BMI 27.3
[2019-07-22] VITALS: BP 133/93
--- NOTE | 2019-07-22 07:34 | NUR ---
RESTING COMFORTABLE IN BED WITH EYES CLOSED, NO S/S OF DISTRESS NOTED AT THIS TIME. IV LOCATED TO RIGHT AC CURRENTLY SL. CURRENTLY RCVING 2L VIA AK. BED LOW, RAILS UP, CALL LIGHT IN REACH. WILL CONT TO MONITOR.
[2019-07-22 08:36] VITALS: BP 149/99
[2019-07-22 11:52] LABS: BASOPHILS 0.2 % (0-2); EOSINOPHILS 0 % (0-7); HEMATOCRIT 39.7 % (42.0-54.0); HEMOGLOBIN 13.2 g/dL (13.5-17.5); LYMPHOCYTES 14.9 % (15-50); MCH 31.1 pg (26.0-34.0); MCHC 33.2 g/dL (31.0-37.0); MCV 93.6 fL (80.0-100.0); MEAN PLATELET VOLUME 9.2 fL (7.4-10.4); MONOCYTES 3.5 % (2-11); NEUTROPHILS 81.4 % (40-80); PLATELET COUNT 114 10x3/uL (130-400); RBC 4.24 10x6/uL (4.20-6.10); RDW 13.7 % (11.5-14.5); WBC 4.9 10x3/uL (4.8-10.8)
[2019-07-22 12:01] LABS: ALBUMIN 3.5 g/dL (3.4-5.0); ANION GAP 15.7 mmol/L (8-16); BILIRUBIN - TOTAL 0.3 mg/dL (0.2-1.3); CALCIUM 9.2 mg/dL (8.5-10.1); CREATININE - SERUM 1.2 mg/dL (0.6-1.3); POTASSIUM - SERUM 4.7 mmol/L (3.5-5.1); PROTEIN - SERUM 8.2 g/dL (6.4-8.2)
[2019-07-22 12:38] VITALS: BP 153/87
[2019-07-22 12:39] VITALS: BMI 27.3
[2019-07-22 14:32] VITALS: Ht 175.3 cm; Wt 83.9 kg
[2019-07-22 15:19] LABS: CKMB 3.3 U/L (0.0-3.6); CREATINE KINASE 111 UL (21-232)
[2019-07-22 15:22] LABS: TROPONIN-I < 0.017 ng/mL (0.000-0.060)
[2019-07-22 17:25] VITALS: BP 102/51
[2019-07-22 20:21] LABS: CKMB 2.7 U/L (0.0-3.6); CREATINE KINASE 109 UL (21-232)
[2019-07-22 20:22] LABS: TROPONIN-I < 0.017 ng/mL (0.000-0.060)
[2019-07-22 20:53] VITALS: BP 152/92
--- NOTE | 2019-07-22 23:47 | NUR ---
A/O WITH NO SIGNS OF ACUTE DISTRESS. WAS TOLD IN REPORT PT NEEDS IV ACCESS. SITED IV TO THE RT FOREARM. NC ON AT 2L. DENIES PAIN OR OTHER NEEDS AT THIS TIME CONT PLAN OF CARE.
[2019-07-23 01:00] LABS: CKMB 2.4 U/L (0.0-3.6); CREATINE KINASE 101 UL (21-232); TROPONIN-I < 0.017 ng/mL (0.000-0.060)
[2019-07-23 01:33] VITALS: BP 138/83
[2019-07-23 04:56] VITALS: BP 134/80
[2019-07-23 06:40] LABS: BASOPHILS 0.1 % (0-2); EOSINOPHILS 0 % (0-7); HEMATOCRIT 36.1 % (42.0-54.0); HEMOGLOBIN 11.9 g/dL (13.5-17.5); IMMATURE GRANULOCYTES 0.3 % (0-5); LYMPHOCYTES 11.3 % (15-50); MCH 30.9 pg (26.0-34.0); MCV 93.8 fL (80.0-100.0); MEAN PLATELET VOLUME 9.2 fL (7.4-10.4); MONOCYTES 3.4 % (2-11); NEUTROPHILS 84.9 % (40-80); PLATELET COUNT 128 10x3/uL (130-400); RBC 3.85 10x6/uL (4.20-6.10)
[2019-07-23 06:44] LABS: WBC 6.8 10x3/uL (4.8-10.8)
[2019-07-23 06:56] LABS: ALBUMIN 3.4 g/dL (3.4-5.0); ALKALINE PHOSPHATASE 87 U/L (46-116); ALT (SGPT) 20 U/L (10-68); BILIRUBIN - TOTAL 0.18 mg/dL (0.2-1.3); CALC OSMOLALITY 292 mosm/kg (275-300); CALCIUM 8.9 mg/dL (8.5-10.1); CARBON DIOXIDE 28.3 mmol/L (21.0-32.0); CHLORIDE - SERUM 108 mmol/L (98-107); CREATININE - SERUM 0.9 mg/dL (0.6-1.3); POTASSIUM - SERUM 4.2 mmol/L (3.5-5.1); PROTEIN - SERUM 7.2 g/dL (6.4-8.2); SODIUM 144 mmol/L (136-145); UREA NITROGEN 20 mg/dL (7-18); eGFR NON AFRICAN AMERICAN 89 mL/min (90-120)
[2019-07-23 06:58] LABS: GLUCOSE 147 mg/dL (74-106)
--- NOTE | 2019-07-23 07:33 | NUR ---
PT RESTING IN BED WITH EYES CLOSED, EASILY AROUSED TO VOICE, ALERT AND ORIENTED. NO S/S OF DISTRESS. IV LOCATED TO RIGHT FOREARM, CURRENTLY SL. DENIES NEEDS AT THIS TIME WILL CONT TO MONITOR.
--- NOTE | 2019-07-23 07:40 | MORECARE ---
CASE MANAGEMENT DISCHARGE SUMMARY PATIENT: KATHERINE COLES UNIT: [id number] ADM DATE: 07/21/19 AGE: 69 : 52 SEX: M ROOM/BED: D.2230 AUTHOR: CHELLY LEA PHYSICIAN: REFERRING PHYSICIAN: LUCHO SHELTON MD DATE OF SERVICE: 07/23/19 Discharge Plan Patient Name: KATHERINE COLES Facility: [facility]:[place] : 1950 Planned Disposition: Home Anticipated Discharge Date: Discharge Date: Expected LOS: Initial Reviewer: [email or web address] Initial Review Date: 07/23/2019 Generated: 07/23/19 8:40 am Patient Name: KATHERINE COLES Page 16044 at 0740 All edits/amendments must be made on the electronic document DICTATION DATE: 07/23/19739 PACKING LINE OPERATOR: ANGIE 07/23/1939 RPT#: [id number] DC DATE: STATUS: ADM IN [facility] [address] [place] [address] END OF REPORT
--- NOTE | 2019-07-23 07:48 | MORECARE ---
CASE MANAGEMENT DISCHARGE SUMMARY PATIENT: KATHERINE COLES UNIT: [id number] ADM DATE: 07/21/19 AGE: 69 : 51 SEX: M ROOM/BED: D.2230 AUTHOR: VENU,DOC PHYSICIAN: REFERRING PHYSICIAN: LUCHO SHELTON MD DATE OF SERVICE: 07/23/19 Discharge Plan Patient Name: KATHERINE COLES Facility: [facility]:[place] : 1950 Planned Disposition: Home Anticipated Discharge Date: Discharge Date: Expected LOS: Initial Reviewer: [email or web address] Initial Review Date: 07/23/2019 Generated: 07/23/19 8:48 am Comments DCP- Discharge Planning Updated by [email or web address]: Shanda Curtis on 07/23/19 6:[address] Patient Name: KATHERINE COLES Admission Status: ER Accout number: [id number] Admission Date: 07-21-2019 : 1950 Admission Diagnosis: Attending: LUCHO SHELTON Current LOS: 2 Anticipated DC Date: Planned Disposition: Home Primary Insurance: MEDICARE A & B Discharge Planning Comments: CM met with patient to complete initial dc planning assessment. CM educated patient on the CM role and verbal consent given by patient to complete assessment. Patient lives at home alone. At discharge patient plans to return and feels this is a safe discharge. CM discussed availability of home health, rehab services, and medical equipment. Patient states he has a nebulizer that he bought at [facility]. States the ER doctor ordered his neb meds. He has had a walk test. JENELLE signed for [facility], I will fax clinical to see if he qualifies for home oxygen. Declines home health services. CM will continue to follow and will assist as needed with dc plans/needs. Machinist Set Up: Shanda Curtis DCPIA - Discharge Planning Initial Assessment Updated by [email or web address]: Shanda Curtis on 07/23/19 7:41 am * Is the patient Alert and Oriented? Yes * How many steps to enter\exit or inside your home? 0/0 * PCP Dr. Shearer * Pharmacy [facility] on [address] * Preadmission Environment Home Alone * ADLs Independent * Equipment Nebulizer * List name and contact numbers for known caregivers / representatives who currently or will assist patient after discharge: Fatemeh Lewis - DTR - [phone] * Verbal permission to speak to the caregivers and representatives has been obtained from the patient. Yes * Community resources currently utilized None * Additional services required to return to the preadmission environment? Yes * Can the patient safely return to the preadmission environment? Yes * Has this patient been hospitalized within the prior 30 days at any hospital? No Last DP export: 07/23/19 6:40 Patient Name: KATHERINE COLES Page 97433 at 0748 All edits/amendments must be made on the electronic document DICTATION DATE: 07/23/19746 BUNCH BREAKER: ANGIE 07/23/19746 RPT#: [id number] DC DATE: STATUS: ADM IN [facility] [address] [place] [address] END OF REPORT
--- NOTE | 2019-07-23 07:54 | MORECARE ---
CASE MANAGEMENT DISCHARGE SUMMARY PATIENT: KATHERINE COLES UNIT: [id number] ADM DATE: 07/21/19 AGE: 69 : 51 SEX: M ROOM/BED: D.2230 AUTHOR: VENU,DOC PHYSICIAN: REFERRING PHYSICIAN: LUCHO SHELTON MD DATE OF SERVICE: 07/23/19 Discharge Plan Patient Name: KATHERINE COLES Facility: [facility]:[place] : 1950 Planned Disposition: Home Anticipated Discharge Date: Discharge Date: Expected LOS: Initial Reviewer: [email or web address] Initial Review Date: 07/23/2019 Generated: 07/23/19 8:54 am Comments DCP- Discharge Planning Updated by [email or web address]: Shanda Curtis on 07/23/19 6:[address] Patient Name: KATHERINE COLES Admission Status: ER Accout number: [id number] Admission Date: 07-21-2019 : 1950 Admission Diagnosis: Attending: LUCHO SHELTON Current LOS: 2 Anticipated DC Date: Planned Disposition: Home Primary Insurance: MEDICARE A & B Discharge Planning Comments: CM met with patient to complete initial dc planning assessment. CM educated patient on the CM role and verbal consent given by patient to complete assessment. Patient lives at home alone. At discharge patient plans to return and feels this is a safe discharge. CM discussed availability of home health, rehab services, and medical equipment. Patient states he has a nebulizer that he bought at [facility]. States the ER doctor ordered his neb meds. He has had a walk test. JENELLE signed for [facility], I will fax clinical to see if he qualifies for home oxygen. Declines home health services. CM will continue to follow and will assist as needed with dc plans/needs. Cleaning Specialist: Shanda Curtis DCPIA - Discharge Planning Initial Assessment Updated by [email or web address]: Shanda Curtis on 07/23/19 7:41 am * Is the patient Alert and Oriented? Yes * How many steps to enter\exit or inside your home? 0/0 * PCP Dr. Shearer * Pharmacy [facility] on [address] * Preadmission Environment Home Alone * ADLs Independent * Equipment Nebulizer * List name and contact numbers for known caregivers / representatives who currently or will assist patient after discharge: Fatemeh Lewis - R - [phone] * Verbal permission to speak to the caregivers and representatives has been obtained from the patient. Yes * Community resources currently utilized None * Additional services required to return to the preadmission environment? Yes * Can the patient safely return to the preadmission environment? Yes * Has this patient been hospitalized within the prior 30 days at any hospital? No External Providers External Provider: Cole Jaimes Contact Date: Service Request Date: Service Type: Resolution: Reviewer: Comments: Last DP export: 07/23/19 6:48 Patient Name: KATHERINE COLES Page 17147 at 0754 All edits/amendments must be made on the electronic document DICTATION DATE: 07/23/19753 FARM MACHINE TENDER: ANGIE 07/23/19753 RPT#: [id number] DC DATE: STATUS: ADM IN [facility] [address] [place] [address] END OF REPORT
--- NOTE | 2019-07-23 08:44 | NUR ---
MONITOR SHOWS SR RATE 97
[2019-07-23 09:09] VITALS: BP 144/89
--- NOTE | 2019-07-23 17:28 | NUR ---
FSBS 85, NO TREATEMENT NEEDED.
--- NOTE | 2019-07-23 19:25 | NUR ---
PT SITTING UP IN CHAIR WITHOUT DISTRESS, AOX4. O2 2L/NC. IV RIGHT FA SL, FLUSHES EASILY. PT HAVING FREQUENT PRODUCTIVE COUGH. HR 110 [address] PER TELE. PT OFFERED BUDLIGHT ORDERED FOR DT'S, REFUSES AT THIS TIME. 2 CANS PLACED IN FRIDGE AND ENCOURAGED PT TO REQUEST IF NEEDED. DENIES NEEDS AT THIS TIME. CL IN REACH, WILL CTM
--- NOTE | 2019-07-23 21:00 | NUR ---
PT REQUESTED AND GIVEN NORCO, DENIES OTHER NEEDS. HS MEDS GIVEN. CL IN REACH, WILL CTM
[2019-07-23 21:13] VITALS: BP 155/91
[2019-07-24 05:11] VITALS: BP 162/98
[2019-07-24 05:31] LABS: BASOPHILS 0.1 % (0-2); EOSINOPHILS 0 % (0-7); HEMATOCRIT 36.5 % (42.0-54.0); HEMOGLOBIN 11.9 g/dL (13.5-17.5); IMMATURE GRANULOCYTES 0.4 % (0-5); LYMPHOCYTES 14.4 % (15-50); MCHC 32.6 g/dL (31.0-37.0); MCV 95.1 fL (80.0-100.0); MEAN PLATELET VOLUME 9.3 fL (7.4-10.4); MONOCYTES 5.6 % (2-11); NEUTROPHILS 79.5 % (40-80); PLATELET COUNT 147 10x3/uL (130-400); RBC 3.84 10x6/uL (4.20-6.10); RDW 14.2 % (11.5-14.5)
[2019-07-24 06:14] LABS: ALBUMIN 3.1 g/dL (3.4-5.0); ALKALINE PHOSPHATASE 76 U/L (46-116); ALT (SGPT) 20 U/L (10-68); CALCIUM 8.5 mg/dL (8.5-10.1); CARBON DIOXIDE 29.2 mmol/L (21.0-32.0); CHLORIDE - SERUM 108 mmol/L (98-107); CREATININE - SERUM 0.8 mg/dL (0.6-1.3); GLUCOSE 153 mg/dL (74-106); POTASSIUM - SERUM 3.8 mmol/L (3.5-5.1); PROTEIN - SERUM 6.9 g/dL (6.4-8.2); SODIUM 145 mmol/L (136-145); eGFR NON AFRICAN AMERICAN > 90 mL/min (90-120)
[2019-07-24 06:21] LABS: CALC OSMOLALITY 294 mosm/kg (275-300); UREA NITROGEN 22 mg/dL (7-18)
--- NOTE | 2019-07-24 07:53 | NUR ---
PT IS RESTING IN BED WITH EYES OPEN. RESPIRATIONS ARE EVEN AND UNLABORED. O2 VIA NC @ 2L. PT REPORTS SLIGHT PAIN TO HEAD DESCRIBED A "LITTLE HEADACHE". PT REQUESTING PAIN MEDICATION WILL ADDRESS. SEE EMAR. PT DENIES FURTHER NEEDS AND STATES "I HOPE I GET TO GO HOME TODAY". BED IS IN THE LOWEST POSITION. CALL LIGHT AND BEDSIDE TABLE ARE WITHIN REACH. SIDE RAILS X 2. WILL CONT TO MONITOR.
[2019-07-24 08:01] VITALS: BP 155/100
[2019-07-24] MEDS ORDERED: LEVAQUIN750 MG PO (11:06)
[2019-07-24] MEDS ORDERED: FEXOFENADINE HC60 MG PO (11:06)
[2019-07-24] MEDS ORDERED: CATAPRES0.1 MG PO (11:07)
[2019-07-24] MEDS ORDERED: PROTONIX40 MG PO (11:07)
[2019-07-24] MEDS ORDERED: PREDNISONE10 MG PO (11:08)
[2019-07-24] MEDS ORDERED: PROMETH-CODEIN 65 ML PO ×2 (11:48→11:52)
--- NOTE | 2019-07-24 12:51 | MORECARE ---
CASE MANAGEMENT DISCHARGE SUMMARY PATIENT: KATHERINE COLES UNIT: [id number] ADM DATE: 07/21/19 AGE: 69 : 51 SEX: M ROOM/BED: D.2230 AUTHOR: CHELLY LEA PHYSICIAN: REFERRING PHYSICIAN: LUCHO SHELTON MD DATE OF SERVICE: 07/24/19 Discharge Plan Patient Name: KATHERINE COLES Facility: [facility]:[place] : 1950 Planned Disposition: Home Anticipated Discharge Date: Discharge Date: Expected LOS: Initial Reviewer: [email or web address] Initial Review Date: 07/23/2019 Generated: 07/24/19 1:51 pm Comments DCP- Discharge Planning Updated by [email or web address]: Shanda Curtis on 07/24/19 11:[address] Received discharge orders. [facility] has brought portable oxygen and it is in the room. The patient is to call [facility] when he leaves to have home oxygen set up. They are also delivering his nebulizer to the home. Daughter is at bedside. CM will continue to follow and assist with discharge planning/needs. DCP- Discharge Planning Updated by [email or web address]: Shanda Curtis on 07/23/19 6:[address] Patient Name: KATHERINE COLES Admission Status: ER Accout number: [id number] Admission Date: 07-21-2019 : 1950 Admission Diagnosis: Attending: LUCHO SHELTON Current LOS: 2 Anticipated DC Date: Planned Disposition: Home Primary Insurance: MEDICARE A & B Discharge Planning Comments: CM met with patient to complete initial dc planning assessment. CM educated patient on the CM role and verbal consent given by patient to complete assessment. Patient lives at home alone. At discharge patient plans to return and feels this is a safe discharge. CM discussed availability of home health, rehab services, and medical equipment. Patient states he has a nebulizer that he bought at [facility]. States the ER doctor ordered his neb meds. He has had a walk test. JENELLE signed for [facility], I will fax clinical to see if he qualifies for home oxygen. Declines home health services. CM will continue to follow and will assist as needed with dc plans/needs. Rooming House Operator: Shanda Curtis DCPIA - Discharge Planning Initial Assessment Updated by [email or web address]: Shanda Curtis on 07/23/19 7:41 am * Is the patient Alert and Oriented? Yes * How many steps to enter\exit or inside your home? 0/0 * PCP Dr. Shearer * Pharmacy [facility] on [address] * Preadmission Environment Home Alone * ADLs Independent * Equipment Nebulizer * List name and contact numbers for known caregivers / representatives who currently or will assist patient after discharge: Fatemeh Lewis [facility] - [phone] * Verbal permission to speak to the caregivers and representatives has been obtained from the patient. Yes * Community resources currently utilized None * Additional services required to return to the preadmission environment? Yes * Can the patient safely return to the preadmission environment? Yes * Has this patient been hospitalized within the prior 30 days at any hospital? No Coverage Notice Reviewer: [id number] - Shanda Curtis Notice Issued Date-Time: 07/24/2019 11:23 Notice Type: IM Discharge Notice Notice Delivered To: Patient Relationship to Patient: Self Media Marketing Manager Name: Delivery Method: HAND - Hand Delivered Miguelina Days: Prior Verbal Notification: Recipient Understood Notice: Yes Recipient Signature: Yes Med Rec Note Co-signed by Attending: Coverage Notice Comment: IMM explained, signed, given, copy placed in MR Last DP export: 07/23/19 6:54 Patient Name: KATHERINE COLES Page 02230 at 1251 All edits/amendments must be made on the electronic document DICTATION DATE: 07/24/19 125 FIELD EVIDENCE TECHNICIAN: ANGIE 07/24/19 1250 RPT#: [id number] DC DATE: STATUS: ADM IN [facility] [address] [place] [address] END OF REPORT
[2019-07-24 13:57] VITALS: BP 149/81
[2019-07-24 14:09] LABS: CA 15-3 18.3 U/mL (0.0-25.0); CA125 15.4 U/mL (Not Estab.)
--- NOTE | 2019-07-24 15:15 | NUR ---
ALL DISCHARGE PAPERS COVERED WITH PT ANBD PT FAMILY MEMBERS. (1) PRINTED RX GIVEN TO PT ALL OTHER RX ESCRIBED. PT IS AWARE. PIV REMOVED FROM RIGHT FA WITH CATHETER TIP INTACT. DRESSING APPLIED. PT DENIES FURTHER QUESTIONS/NEEDS/CONCERNS. ALL DISCHARGE PAPERS SIGNED AND PLACED IN PT CHART.
--- NOTE | 2019-07-24 15:19 | NUR ---
PT TRANSPORTED FROM ROOM VIA WHEELCHAIR ESCORTED BY HOSPITAL VOLUNTEER STAFF. PT THANKS ME FOR CARE GIVEN THIS SHIFT. PT DENIES FURTHER QUESTIONS/NEED/CONCERNS AT THIS TIME.
[2019-07-25 12:09] LABS: PROCALCITONIN 0.07 ng/mL (0.00-0.08)
--- NOTE | 2019-07-25 16:48 | MORECARE ---
CASE MANAGEMENT DISCHARGE SUMMARY PATIENT: KATHERINE COLES UNIT: [id number] ADM DATE: 07/21/19 AGE: 69 : 51 SEX: M ROOM/BED: D.2230 AUTHOR: CHELLY LEA PHYSICIAN: REFERRING PHYSICIAN: LUCHO SHELTON MD DATE OF SERVICE: 07/25/19 Discharge Plan Patient Name: KATHREINE COLES Facility: [facility]:[place] : 1950 Planned Disposition: Home Anticipated Discharge Date: Discharge Date: 07/24/2019 Expected LOS: 0 Initial Reviewer: [email or web address] Initial Review Date: 07/23/2019 Generated: 07/25/19 5:48 pm DCP- Discharge Planning Updated by [email or web address]: Shanda Curtis on 07/24/19 11:[address] Received discharge orders. [facility] has brought portable oxygen and it is in the room. The patient is to call [facility] when he leaves to have home oxygen set up. They are also delivering his nebulizer to the home. Daughter is at bedside. CM will continue to follow and assist with discharge planning/needs. DCP- Discharge Planning Updated by [email or web address]: Shanda Curtis on 07/23/19 6:[address] Patient Name: KATHERINE COLES Admission Status: ER Accout number: [id number] Admission Date: 07-21-2019 : 1950 Admission Diagnosis: Attending: LUCHO SHELTON Current LOS: 2 Anticipated DC Date: Planned Disposition: Home Primary Insurance: MEDICARE A & B Discharge Planning Comments: CM met with patient to complete initial dc planning assessment. CM educated patient on the CM role and verbal consent given by patient to complete assessment. Patient lives at home alone. At discharge patient plans to return and feels this is a safe discharge. CM discussed availability of home health, rehab services, and medical equipment. Patient states he has a nebulizer that he bought at [facility]. States the ER doctor ordered his neb meds. He has had a walk test. JENELLE signed for [facility], I will fax clinical to see if he qualifies for home oxygen. Declines home health services. CM will continue to follow and will assist as needed with dc plans/needs. Seat Trimmer: Shanda Curtis DCPIA - Discharge Planning Initial Assessment Updated by [email or web address]: Shanda Curtis on 07/23/19 7:41 am * Is the patient Alert and Oriented? Yes * How many steps to enter\exit or inside your home? 0/0 * PCP Dr. Shearer * Pharmacy [facility] on [address] * Preadmission Environment Home Alone * ADLs Independent * Equipment Nebulizer * List name and contact numbers for known caregivers / representatives who currently or will assist patient after discharge: Fatemeh Lewis [facility] - [phone] * Verbal permission to speak to the caregivers and representatives has been obtained from the patient. Yes * Community resources currently utilized None * Additional services required to return to the preadmission environment? Yes * Can the patient safely return to the preadmission environment? Yes * Has this patient been hospitalized within the prior 30 days at any hospital? No Coverage Notice Reviewer: [email or web address] - Shanda Curtis Notice Issued Date-Time: 07/24/2019 11:23 Notice Type: IM Discharge Notice Notice Delivered To: Patient Relationship to Patient: Self Official Court Reporter Name: Delivery Method: HAND - Hand Delivered Miguelina Days: Prior Verbal Notification: Recipient Understood Notice: Yes Recipient Signature: Yes Med Rec Note Co-signed by Attending: Coverage Notice Comment: IMM explained, signed, given, copy placed in MR Last DP export: 07/24/19 11:51 Patient Name: KATHERINE COLES Page 89615 at 1648 All edits/amendments must be made on the electronic document DICTATION DATE: 07/25/191647 CAPACITOR INSPECTOR: ANGIE 07/25/191647 RPT#: [id number] DC DATE:07/24/19 STATUS: DIS IN [facility] [address] [place] [address] END OF REPORT
--- NOTE | 2019-07-26 13:28 | EC ---
PATIENT:KATHERINE COLES DATE OF SERVICE: 07/21/19 SEX: M MEDICAL RECORD: [id number] DATE OF : [birth year] LOCATION:D.MS Abdi AGE OF PATIENT: 69 ADMISSION DATE: 07/21/19 REFERRING PHYSICIAN: INTERPRETING PHYSICIAN: BRIDGER BAE MD ECHOCARDIOGRAM REPORT ECHO CHARGES 4 ECHO COMPLETE Date: 07/22/19 CLINICAL DIAGNOSIS: SOB,HTN,ASSESS FOR CHF ECHOCARDIOGRAPHIC MEASUREMENTS (adult normal given) AC root (d.<3.7cm) 3.3 cm LV Septum d (<1.2 cm> 0.70 cm Valve Excursion 1.9 cm LV Septum (systole) 1.3 cm Left Atria (s.<4.0cm> 3.1 cm LVPW d(<1.2cm) 0.70 cm RV (d.<2.3cm) 2.7 cm LVPW (sytole) 1.0 cm LV diastole(<5.6CM) 7.0 cm MV E-F(>70mm/sec) cm LV systole 5.2 cm LVOT Diameter 1.7 cm MV exc.(>10mm) cm Est.ejection fraction (50-75%) % DOPPLER: LVIT cm/sec A 38.0 cm/sec E 111 cm/sec LA cm/sec RVSP 27 mmHg LVOT 116 cm/sec AOP1/2T m/s Asc. Ao 144 cm/sec RVOT cm/sec RA cm/sec PA cm/sec AV Gradient Peak 8.3 mmHg AV Mean 5.3 mmHg AV Area 1.9 cm MV Gradient Peak 5.1 mmHg MV Mean 1.5 mmHg MV Area cm COMMENTS: Orthopedic Dentist: Steffi [facility] Early Childhood Associate: 1 Dr. Bae TAPE# PACS Pericardial Effusion Y DATE OF SERVICE: FINDINGS: 1. Left ventricular chamber size is mildly dilated. Left ventricular systolic function is preserved at 55%. 2. Left atrium, right atrium, and right ventricle chamber sizes are within normal limits. 3. Valvular structures have normal structure and motion. 4. Doppler interrogation reveals mild mitral regurgitation, trace tricuspid regurgitation, no other valvular insufficiency or stenosis. ECHOCARDIOGRAM REPORT [id number] KATHERINE COLES 5. No evidence of pericardial effusion or left ventricular thrombus. TRANSINT:[id number] Voice Confirmation ID: [id number] DOCUMENT ID: [id number] BRIDGER BAE MD at 1328 CC: [id number] DICTATION DATE: 07/22/19 1544 MACHINE WHITENER: 07/22/19 2233 DIS IN 07/24/19 [facility] [address] [place] [address]
== END 2019-07-24 15:20 | disposition home or self-care (01) | DRG 193 ==
LOC: D.ER 15:24 → D.MS 18:23 → D.SDCHOLD 07-22 09:54 → D.MS 07-24 15:20
PROVIDERS: Family Medicine; Internal Medicine Pulmonary Disease; ADMIT Internal Medicine Nephrology; ATTEND Internal Medicine Nephrology
DX: J18.9 Pneumonia, unspecified organism (principal); J96.21 Acute and chronic respiratory failure with hypoxia; S22.31XA Fracture of one rib, right side, initial encounter for closed fracture; J90 Pleural effusion, not elsewhere classified; J44.0 Chronic obstructive pulmonary disease with (acute) lower respiratory infection; J20.9 Acute bronchitis, unspecified; J98.4 Other disorders of lung; I10 Essential (primary) hypertension; R00.0 Tachycardia, unspecified; Z72.89 Other problems related to lifestyle; I34.0 Nonrheumatic mitral (valve) insufficiency; I07.1 Rheumatic tricuspid insufficiency

== ENCOUNTER → 2019-07-29 07:19 | Outpatient (CLI) | payer MEDICARE, OTHER ==
[2019-07-22 14:32] VITALS: BMI 27.3
[~2019-07-29 07:19] MED LIST changes: +CATAPRES0.1 MG PO; +FEXOFENADINE HC60 MG PO; +HYDROCODON-ACE1 EAC2 PO; +LEVAQUIN750 MG PO; +PREDNISONE10 MG PO; +PROMETH-CODEIN 65 ML PO; +PROTONIX40 MG PO; +STERAPRED DS 1010 MG PO; +TORADOL10 MG PO; +ZITHROMAX500 MG PO
== END ==
LOC: D.MRI 07:19
PROVIDERS: ATTEND Family Medicine
DX: K86.89 Other specified diseases of pancreas (principal)

== ENCOUNTER → 2019-08-20 09:32 | Outpatient (CLI) | payer MEDICARE, OTHER ==
[2019-07-22 14:32] VITALS: BMI 27.3
--- NOTE | 2019-08-20 10:37 | NUR ---
1030-PT. UNABLE TO RETURN TOMORROW TO COMPLETE 24HR PH TEST-MANOMATRY TEST AND PH TEST RESCHEDULED FOR 08/27/19.
== END | disposition home or self-care (01) ==
LOC: D.OPS 08-08 10:30
PROVIDERS: ATTEND Internal Medicine Cardiovascular Disease
DX: K86.2 Cyst of pancreas (principal); R05 Cough

== ENCOUNTER → 2019-08-27 09:57 | Outpatient (CLI) | payer MEDICARE, OTHER ==
[2019-07-22 14:32] VITALS: BMI 27.3
== END | disposition home or self-care (01) ==
LOC: D.OPS 09:57
PROVIDERS: ATTEND Family Medicine
DX: K86.9 Disease of pancreas, unspecified (principal)

== ENCOUNTER 2019-09-10 11:06 | Inpatient (IN) | payer MEDICARE, OTHER ==
[~2019-09-10] VITALS: Ht 175.3 cm; Wt 87.0 kg
[~2019-09-10 11:06] MED LIST changes: -HYDROCODON-ACE1 EAC2 PO; -STERAPRED DS 1010 MG PO; -TORADOL10 MG PO; -ZITHROMAX500 MG PO
--- NOTE | 2019-09-10 12:00 | NUR ---
ARRIVE TO ROOM VIA WHEELCHAIR FROM DOCTOR'S OFFICE. ALERT AND ORIENTED X4. DROVE SELF HERE. GAIT STEADY. PORTABLE OXYGEN TURNED OFF AND USE WALL OXYGEN. IV SITED LT FA 20G SUCCESSFUL X1 ATTEMPT. DENIES ANY NEEDS AT THIS TIME. CONTINUE ADMISSION PROCESS AND SAFETY PRECAUTIONS. REFUSE SCDs.
[2019-09-10] MEDS ORDERED: TORADOL10 MG PO (12:01)
[2019-09-10 13:34] VITALS: BP 155/89; Ht 175.3 cm; Wt 87.0 kg
[2019-09-10 15:06] VITALS: BP 158/80
[2019-09-10 15:37] LABS: APTT 27.3 SECONDS (22.8-39.4); INR 1.09 (0.85-1.17); PROTIME 13.6 SECONDS (11.6-15.0)
[2019-09-10 15:38] LABS: BASOPHILS 0.3 % (0-2); D-DIMER-QUANTITATIVE 0.7 ug/mLFEU (0.20-0.54); EOSINOPHILS 8.3 % (0-7); HEMATOCRIT 42.3 % (42.0-54.0); HEMOGLOBIN 14.1 g/dL (13.5-17.5); IMMATURE GRANULOCYTES 0.1 % (0-5); LYMPHOCYTES 15.2 % (15-50); MCH 30.9 pg (26.0-34.0); MCHC 33.3 g/dL (31.0-37.0); MCV 92.8 fL (80.0-100.0); MEAN PLATELET VOLUME 9.2 fL (7.4-10.4); MONOCYTES 7.7 % (2-11); NEUTROPHILS 68.4 % (40-80); PLATELET COUNT 129 10x3/uL (130-400); RBC 4.56 10x6/uL (4.20-6.10); RDW 13.5 % (11.5-14.5); WBC 7.3 10x3/uL (4.8-10.8)
[2019-09-10 15:58] LABS: ALBUMIN 3.3 g/dL (3.4-5.0); ALKALINE PHOSPHATASE 85 U/L (46-116); ALT (SGPT) 29 U/L (10-68); BILIRUBIN - TOTAL 0.31 mg/dL (0.2-1.3); CALC OSMOLALITY 280 mosm/kg (275-300); CALCIUM 9.1 mg/dL (8.5-10.1); CHLORIDE - SERUM 106 mmol/L (98-107); CREATININE - SERUM 0.9 mg/dL (0.6-1.3); MAGNESIUM - SERUM 2.2 mg/dL (1.8-2.4); PRO BNP 73 pg/mL (0-125); PROTEIN - SERUM 7.5 g/dL (6.4-8.2); SODIUM 141 mmol/L (136-145); UREA NITROGEN 12 mg/dL (7-18); eGFR NON AFRICAN AMERICAN 89 mL/min (90-120)
[2019-09-10 15:59] LABS: GLUCOSE 103 mg/dL (74-106)
[2019-09-10 16:12] LABS: APPEARANCE CLEAR (CLEAR); COLOR YELLOW (YELLOW)
[2019-09-10 16:13] LABS: BILIRUBIN NEGATIVE (NEGATIVE); GLUCOSE NEGATIVE (NEGATIVE); KETONE NEGATIVE (NEGATIVE); NITRITE NEGATIVE (NEGATIVE); PROTEIN 1+ mg/dL (NEGATIVE); SPECIFIC GRAVITY 1.015 (1.005-1.020); UROBILINOGEN NORMAL (NORMAL)
--- NOTE | 2019-09-10 19:50 | NUR ---
PT SITTING ON SIDE OF BED HAVING TROUBLE BREATHING. RESPIRATORY CALLED FOR UPDRAFT. PT STATES HE FEELS BETTER AFTER UPDRAFT GIVEN. PT STATES HE WOULD LIKE THEM EVERY 2 HOURS. PT O2-95 ON 2L AT THIS TIME. VITALS STABLE AT THIS TIME. BED LOW CALL LIGHT WITHIN REACH. WILL CONTINUE TO MONITOR.
[2019-09-10 20:00] VITALS: BP 164/98
[2019-09-11] VITALS: BP 141/87
[2019-09-11 04:00] VITALS: BP 155/97
--- NOTE | 2019-09-11 04:16 | NUR ---
PT RESTING IN BED WITH EYES CLOSED. RR EVEN AND UNLABORED AT THIS TIME. NO S/S OF DISTRESS. BED LOW CALL LIGHT WITHIN REACH. WILL CONTINUE TO MONITOR.
[2019-09-11 08:28] VITALS: BP 155/87
[2019-09-11 12:57] VITALS: BP 152/81
--- NOTE | 2019-09-11 15:10 | MORECARE ---
CASE MANAGEMENT DISCHARGE SUMMARY PATIENT: KATHERINE COLES UNIT: [id number] ADM DATE: 09/10/19 AGE: 69 : 51 SEX: M ROOM/BED: D.2112 AUTHOR: CHELLY LEA PHYSICIAN: REFERRING PHYSICIAN: BARI MORALEZ MD DATE OF SERVICE: 09/11/19 Discharge Plan Patient Name: KATHERINE COLES [facility] [facility] 1950 Planned Disposition: Home Anticipated Discharge Date: 09/13/19 Discharge Date: Expected LOS: 3 Initial Reviewer: [email or web address] Initial Review Date: 09/10/2019 Generated: 09/11/19 4:09 pm DCPIA - Discharge Planning Initial Assessment Updated by [email or web address]: Mala Hartman on 09/11/19 3:09 pm * Is the patient Alert and Oriented? Yes * How many steps to enter\exit or inside your home? None * PCP Dr. Moralez * Pharmacy [facility] * Preadmission Environment Home Alone * ADLs Independent * Equipment Oxygen * Other Equipment O2 with portability. * List name and contact numbers for known caregivers / representatives who currently or will assist patient after discharge: Kristie Ruano - [facility] [phone] * Verbal permission to speak to the caregivers and representatives has been obtained from the patient. Yes * Community resources currently utilized None * Additional services required to return to the preadmission environment? No * Can the patient safely return to the preadmission environment? Yes * Has this patient been hospitalized within the prior 30 days at any hospital? No Patient Name: KATHERINE COLES Page 94214 at 1510 All edits/amendments must be made on the electronic document DICTATION DATE: 09/11/19 1509 OTTER TRAWLER [place]: ANGIE 09/11/19 1509 RPT#: [id number] DC DATE: STATUS: ADM IN [facility] [address] [place] [address] END OF REPORT
--- NOTE | 2019-09-11 15:18 | MORECARE ---
CASE MANAGEMENT DISCHARGE SUMMARY PATIENT: KATHERINE COLES UNIT: [id number] ADM DATE: 09/10/19 AGE: 69 : 52 SEX: M ROOM/BED: D.2112 AUTHOR: VENU,DOC PHYSICIAN: REFERRING PHYSICIAN: BARI MORALEZ MD DATE OF SERVICE: 09/11/19 Discharge Plan Patient Name: KATHERINE COLES Facility: [facility]:[place] : 1950 Planned Disposition: Home Anticipated Discharge Date: 09/13/19 Discharge Date: Expected LOS: 3 Initial Reviewer: [email or web address] Initial Review Date: 09/10/2019 Generated: 09/11/19 4:18 pm Comments DCP- Discharge Planning Updated by [email or web address]: Mala Hartman on 09/11/19 2:[address] DC PLAN: Return home alone independently. ANTICIPATED DC NEEDS: Denied dc needs. CM met with patient to complete initial dc planning assessment. CM educated patient on the CM role and verbal consent given by patient to complete assessment. CM verified patient's address, phone number, and emergency contact phone numbers. Patient lives at home alone. He is independent in his care at home. He has oxygen with portability. He has his portable in his room for time of dc. At discharge patient plans to return home alone and feels this is a safe discharge. CM discussed availability of home health, rehab services, and medical equipment. Patient denied known discharge needs at this time. Patient reports he will transport himself home at time of discharge. He drove himself to the hospital. CM will continue to follow and will assist as needed with dc plans/needs. Mala Hartman RN, [facility] DCPIA - Discharge Planning Initial Assessment Updated by [email or web address]: Mala Hartman on 09/11/19 3:11 pm * Is the patient Alert and Oriented? Yes * How many steps to enter\exit or inside your home? None * PCP Dr. Moralez * Pharmacy [facility] * Preadmission Environment Home Alone * ADLs Independent * Equipment Oxygen * Other Equipment O2 with portability. Angelic is O2 provider. * List name and contact numbers for known caregivers / representatives who currently or will assist patient after discharge: Kristie Ruano [facility] [phone] * Verbal permission to speak to the caregivers and representatives has been obtained from the patient. Yes * Community resources currently utilized None * Additional services required to return to the preadmission environment? No * Can the patient safely return to the preadmission environment? Yes * Has this patient been hospitalized within the prior 30 days at any hospital? No Last DP export: 09/11/19 2:10 p Patient Name: KATHERINE COLES Page 19566 at 1518 All edits/amendments must be made on the electronic document DICTATION DATE: 09/11/191517 PLATE PAINTER APPRENTICE: ANGIE 09/11/191517 RPT#: [id number] CA DATE: STATUS: ADM IN [facility] [address] [place] [address] END OF REPORT
[2019-09-11 16:17] VITALS: BP 153/92
[2019-09-11 19:00] VITALS: BP 162/85
--- NOTE | 2019-09-11 20:11 | NUR ---
BEDSIDE REPORT RECEIVED FROM DAY SHIFT, PT CARE ASSUMED. INTRODUCED SELF AND WROTE NAME ON BOARD. PT SITTING UP IN BED, WATCHING TV, AAOX4. DENIES ANY NEEDS AT THIS TIME. BED IN LOWEST POSITION, SR X1, CALL LIGHT WITHIN REACH. WILL CONTINUE TO MONITOR.
[2019-09-12] VITALS: BP 142/83
[2019-09-12 04:00] VITALS: BP 133/78
[2019-09-12 06:08] LABS: CALC OSMOLALITY 286 mosm/kg (275-300); CALCIUM 8.6 mg/dL (8.5-10.1); CARBON DIOXIDE 27.9 mmol/L (21.0-32.0); CHLORIDE - SERUM 108 mmol/L (98-107); CREATININE - SERUM 0.7 mg/dL (0.6-1.3); POTASSIUM - SERUM 4.5 mmol/L (3.5-5.1); SODIUM 141 mmol/L (136-145); UREA NITROGEN 15 mg/dL (7-18); eGFR NON AFRICAN AMERICAN > 90 mL/min (90-120)
[2019-09-12 06:11] LABS: GLUCOSE 189 mg/dL (74-106)
[2019-09-12 06:26] LABS: HEMATOCRIT 36.7 % (42.0-54.0); HEMOGLOBIN 12.3 g/dL (13.5-17.5); LYMPHOCYTES 9.5 % (15-50); MCH 31.1 pg (26.0-34.0); MCHC 33.5 g/dL (31.0-37.0); MCV 92.7 fL (80.0-100.0); MEAN PLATELET VOLUME 9.2 fL (7.4-10.4); NEUTROPHILS 87.4 % (40-80); PLATELET COUNT 124 10x3/uL (130-400); RBC 3.96 10x6/uL (4.20-6.10); RDW 13.5 % (11.5-14.5); WBC 6.2 10x3/uL (4.8-10.8)
--- NOTE | 2019-09-12 07:28 | NUR ---
REPORT RECEIVED. WILL CONTINUE WITH POC. PT CURRENTLY LYING SEMI FOWLERS. CALL LIGHT W/I REACH. PT IS ASLEEP WITH EYES CLOSED AT THIS TIME. RR EVEN AND UNLABORED ON 3L 02. 1/2NS @75ML/HR VIA L.AC PIV. NO S/S OF DISTRESS NOTED. PT DENIES ANY NEEDS AT THIS TIME. WILL CTM.
[2019-09-12 09:49] VITALS: BP 168/90
[2019-09-12 13:37] VITALS: BP 163/86
[2019-09-12 17:16] VITALS: BP 153/88
--- NOTE | 2019-09-12 19:22 | NUR ---
RECIEVED UP IN BED WITH EYES OPEN AND TV ON. ALERT AND ORIENTED X4. UP AD JEANCARLOS TO B/R.IV TO LEFT FA WITH 1/2 NS AT 75CCD/HR. O2@ 3 LITERS PER N/C IN PLACE. DENIES ANY NEEDS AT THIS TIME.
[2019-09-12 20:00] VITALS: BP 152/80
[2019-09-13] VITALS: BP 135/82
--- NOTE | 2019-09-13 05:50 | NUR ---
IV INFILTRATED AND REFUSES TO RESTART STATING " DOCTOR TOLD ME I WAS GOING HOME TODAY AND I DON'T NEED IT. I'VE FINISHED ALL MY ABT.
--- NOTE | 2019-09-13 07:30 | NUR ---
A/A/OX3. DRESSED AND SITTING UP IN CHAIR AT BEDSIDE. STATES HE IS BEING DISCHARGED TODAY. ASSESSMENT COMPLETED AND WILL CONTINUE POC.
[2019-09-13 08:05] VITALS: BP 156/87
[2019-09-13] MEDS ORDERED: ZITHROMAX500 MG PO (09:32)
[2019-09-13] MEDS ORDERED: OMNICEF300 MG PO (09:32)
[2019-09-13] MEDS ORDERED: STERAPRED DS 1010 MG PO (09:33)
[2019-09-13] MEDS ORDERED: HYDROCODON-ACE1 EAC2 PO (10:15)
--- NOTE | 2019-09-13 12:30 | NUR ---
REVIEWED DISCHARGE INSTRUCTIONS WITH PT AND VERBALIZES UNDERSTANDING WITH NO QUESTIONS. NO SL TO REMOVE. PT LEFT FLOOR VIA W/C AND LEFT FACILITY VIA PRIVATE VEHICLE AND DRIVING HIMSELF.
--- NOTE | 2019-09-13 13:12 | MORECARE ---
CASE MANAGEMENT DISCHARGE SUMMARY PATIENT: KATHERINE COLES UNIT: [id number] ADM DATE: 09/10/19 AGE: 69 : 52 SEX: M ROOM/BED: D.2112 AUTHOR: VENU,DOC PHYSICIAN: REFERRING PHYSICIAN: BARI MORALEZ MD DATE OF SERVICE: 09/13/19 Discharge Plan Patient Name: KATHERINE COLES Facility: [facility]:[place] : 1950 Planned Disposition: Home Anticipated Discharge Date: 09/13/19 Discharge Date: Expected LOS: 3 Initial Reviewer: [email or web address] Initial Review Date: 09/10/2019 Generated: 09/13/19 2:11 pm DCP- Discharge Planning Updated by [email or web address]: Mala Hartman on 09/11/19 2:[address] DC PLAN: Return home alone independently. ANTICIPATED DC NEEDS: Denied dc needs. CM met with patient to complete initial dc planning assessment. CM educated patient on the CM role and verbal consent given by patient to complete assessment. CM verified patient's address, phone number, and emergency contact phone numbers. Patient lives at home alone. He is independent in his care at home. He has oxygen with portability. He has his portable in his room for time of dc. At discharge patient plans to return home alone and feels this is a safe discharge. CM discussed availability of home health, rehab services, and medical equipment. Patient denied known discharge needs at this time. Patient reports he will transport himself home at time of discharge. He drove himself to the hospital. CM will continue to follow and will assist as needed with dc plans/needs. Mala Hartman RN, [facility] DCPIA - Discharge Planning Initial Assessment Updated by [email or web address]: Mala Hartman on 09/11/19 3:11 pm * Is the patient Alert and Oriented? Yes * How many steps to enter\exit or inside your home? None * PCP Dr. Moralez * Pharmacy [facility] * Preadmission Environment Home Alone * ADLs Independent * Equipment Oxygen * Other Equipment O2 with portability. [facility] is O2 provider. * List name and contact numbers for known caregivers / representatives who currently or will assist patient after discharge: Kristie Ruano [facility] [phone] * Verbal permission to speak to the caregivers and representatives has been obtained from the patient. Yes * Community resources currently utilized None * Additional services required to return to the preadmission environment? No * Can the patient safely return to the preadmission environment? Yes * Has this patient been hospitalized within the prior 30 days at any hospital? No Last DP export: 09/11/19 2:19 p Patient Name: KATHERINE COLES Page [id number] at 1312 All edits/amendments must be made on the electronic document DICTATION DATE: 09/13/19 1311 GASOLINE PUMP INSTALLER: ANGIE 09/13/19 1311 RPT#: [id number] MD DATE: STATUS: ADM IN [facility] [address] [place] [address] END OF REPORT
--- NOTE | 2019-09-13 13:27 | MORECARE ---
CASE MANAGEMENT DISCHARGE SUMMARY PATIENT: KATHERINE COLES UNIT: [id number] ADM DATE: 09/10/19 AGE: 69 : 51 SEX: M ROOM/BED: D.2112 AUTHOR: VENU,DOC PHYSICIAN: REFERRING PHYSICIAN: BARI MORALEZ MD DATE OF SERVICE: 09/13/19 Discharge Plan Patient Name: KATHERINE COLES Facility: [facility]:[place] : 1950 Planned Disposition: Home Anticipated Discharge Date: 09/13/19 Discharge Date: Expected LOS: 3 Initial Reviewer: [email or web address] Initial Review Date: 09/10/2019 Generated: 09/13/19 2:27 pm DCP- Discharge Planning Updated by [email or web address]: Mala Hartman on 09/11/19 2:[address] DC PLAN: Return home alone independently. ANTICIPATED DC NEEDS: Denied dc needs. CM met with patient to complete initial dc planning assessment. CM educated patient on the CM role and verbal consent given by patient to complete assessment. CM verified patient's address, phone number, and emergency contact phone numbers. Patient lives at home alone. He is independent in his care at home. He has oxygen with portability. He has his portable in his room for time of dc. At discharge patient plans to return home alone and feels this is a safe discharge. CM discussed availability of home health, rehab services, and medical equipment. Patient denied known discharge needs at this time. Patient reports he will transport himself home at time of discharge. He drove himself to the hospital. CM will continue to follow and will assist as needed with dc plans/needs. Mala Hartman RN, [facility] DCPIA - Discharge Planning Initial Assessment Updated by [email or web address]: Mala Hartman on 09/11/19 3:11 pm * Is the patient Alert and Oriented? Yes * How many steps to enter\exit or inside your home? None * PCP Dr. Moralez * Pharmacy [facility] * Preadmission Environment Home Alone * ADLs Independent * Equipment Oxygen * Other Equipment O2 with portability. [facility] is O2 provider. * List name and contact numbers for known caregivers / representatives who currently or will assist patient after discharge: Kristie Ruano [facility] [phone] * Verbal permission to speak to the caregivers and representatives has been obtained from the patient. Yes * Community resources currently utilized None * Additional services required to return to the preadmission environment? No * Can the patient safely return to the preadmission environment? Yes * Has this patient been hospitalized within the prior 30 days at any hospital? No Coverage Notice Reviewer: [email or web address] Pedro Olmstead Notice Issued Date-Time: 09/13/2019 10:12 Notice Type: IM Discharge Notice Notice Delivered To: Patient Relationship to Patient: Binman Name: Delivery Method: HAND - Hand Delivered Miguelina Days: Prior Verbal Notification: Recipient Understood Notice: Yes Recipient Signature: Yes Med Rec Note Co-signed by Attending: Coverage Notice Comment: Last DP export: 09/13/19 12:12 p Patient Name: KATHERINE COLES Page [id number] at 1327 All edits/amendments must be made on the electronic document DICTATION DATE: 09/13/19 1327 ADMINISTRATIVE PROGRAM SPECIALIST: ANGIE 09/13/19 1327 RPT#: [id number] DC DATE: STATUS: ADM IN [facility] [address] [place] [address] END OF REPORT
--- NOTE | 2019-09-13 13:34 | MORECARE ---
CASE MANAGEMENT DISCHARGE SUMMARY PATIENT: KATHERINE COLES UNIT: [id number] ADM DATE: 09/10/19 AGE: 69 : 52 SEX: M ROOM/BED: D.2112 AUTHOR: CHELLY LEA PHYSICIAN: REFERRING PHYSICIAN: BARI MORALEZ MD DATE OF SERVICE: 09/13/19 Discharge Plan Patient Name: KATHERINE COLES Facility: [facility]:[place] : 1950 Planned Disposition: Home Anticipated Discharge Date: 09/13/19 Discharge Date: Expected LOS: 3 Initial Reviewer: [email or web address] Initial Review Date: 09/10/2019 Generated: 09/13/19 2:34 pm Comments DCP- Discharge Planning Updated by [email or web address]: Hero Olmstead on 09/13/19 12:[address] Patient Name: KATHERINE COLES Encounter No: [id number] : 1950 Primary Insurance: MEDICARE A & B Anticipated DC Date: 09-13-2019 Planned Disposition: Home DCP follow-up note: CM MET WITH PT IN ROOM TO DISCUSS DISCHARGE NEEDS AND PLANNING. CM DISCUSSED AVAILABILITY OF HOME HEALTH, REHAB SERVICES AND MEDICAL EQUIPMENT. PT DENIES DISCHARGE NEEDS. FAMILY TO TRANSPORT HOME AT DISCHARGE. IMPORTANT MESSAGE FROM MEDICARE PROVIDED AND EXPLAINED. PARTH [facility]ave DCP- Discharge Planning Updated by [email or web address]: Mala Hartman on 09/11/19 2:[address] DC PLAN: Return home alone independently. ANTICIPATED DC NEEDS: Denied dc needs. CM met with patient to complete initial dc planning assessment. CM educated patient on the CM role and verbal consent given by patient to complete assessment. CM verified patient's address, phone number, and emergency contact phone numbers. Patient lives at home alone. He is independent in his care at home. He has oxygen with portability. He has his portable in his room for time of dc. At discharge patient plans to return home alone and feels this is a safe discharge. CM discussed availability of home health, rehab services, and medical equipment. Patient denied known discharge needs at this time. Patient reports he will transport himself home at time of discharge. He drove himself to the hospital. CM will continue to follow and will assist as needed with dc plans/needs. Mala Hartman RN, [facility] DCPIA - Discharge Planning Initial Assessment Updated by [email or web address]: Mala Hartman on 09/11/19 3:11 pm * Is the patient Alert and Oriented? Yes * How many steps to enter\exit or inside your home? None * PCP Dr. Moralez * Pharmacy [facility] * Preadmission Environment Home Alone * ADLs Independent * Equipment Oxygen * Other Equipment O2 with portability. [facility] is O2 provider. * List name and contact numbers for known caregivers / representatives who currently or will assist patient after discharge: Kristie Ruano [facility] [phone] * Verbal permission to speak to the caregivers and representatives has been obtained from the patient. Yes * Community resources currently utilized None * Additional services required to return to the preadmission environment? No * Can the patient safely return to the preadmission environment? Yes * Has this patient been hospitalized within the prior 30 days at any hospital? No Coverage Notice Reviewer: [email or web address] Pedro Olmstead Notice Issued Date-Time: 09/13/2019 10:12 Notice Type: IM Discharge Notice Notice Delivered To: Patient Relationship to Patient: Daycare Worker Name: Delivery Method: HAND - Hand Delivered Miguelina Days: Prior Verbal Notification: Recipient Understood Notice: Yes Recipient Signature: Yes Med Rec Note Co-signed by Attending: Coverage Notice Comment: Last DP export: 09/13/19 12:27 p Patient Name: KATHERINE COLES Page [id number] at 1334 All edits/amendments must be made on the electronic document DICTATION DATE: 09/13/19 133 BRICKLAYER SUPERVISOR: ANGIE 09/13/19 133 RPT#: [id number] DC DATE: STATUS: ADM IN [facility] [address] [place] [address] END OF REPORT
== END 2019-09-13 14:47 | disposition home or self-care (01) | DRG 189 ==
LOC: D.M2 11:06
PROVIDERS: Internal Medicine Nephrology; ADMIT Family Medicine; ATTEND Family Medicine
DX: J96.21 Acute and chronic respiratory failure with hypoxia (principal); J44.0 Chronic obstructive pulmonary disease with (acute) lower respiratory infection; J44.1 Chronic obstructive pulmonary disease with (acute) exacerbation; J20.9 Acute bronchitis, unspecified; J98.4 Other disorders of lung; J30.9 Allergic rhinitis, unspecified; F10.20 Alcohol dependence, uncomplicated; I10 Essential (primary) hypertension; Z87.891 Personal history of nicotine dependence

== ENCOUNTER → 2020-04-21 12:49 | Outpatient (CLI) | payer MEDICARE, OTHER ==
[2019-09-10 13:34] VITALS: BMI 28.1
[~2020-04-21 12:49] MED LIST changes: +HYDROCODON-ACE1 EAC2 PO; +STERAPRED DS 1010 MG PO; +TORADOL10 MG PO; +ZITHROMAX500 MG PO
== END | disposition home or self-care (01) ==
LOC: D.RAD 12:49
PROVIDERS: ATTEND Internal Medicine Pulmonary Disease
DX: J44.1 Chronic obstructive pulmonary disease with (acute) exacerbation (principal)